=== PATIENT | female | born 1960 | race Caucasian/White ===

== ENCOUNTER → 2016-09-08 | Outpatient (CLI) | payer BC ==
--- NOTE | 2016-09-08 16:47 | US ---
EXAMINATION TYPE: US pelvis complete transvag DATE OF EXAM: 09/08/2016 4:01 PM COMPARISON: NONE CLINICAL HISTORY: 56-year-old female with Pelvic pain R10.9. Recurrent UTI, urinary frequency, partia l hysterectomy, pelvic pain TECHNIQUE: Transvaginal (TV) and Transabdominal (TA) . Endovaginal scanning was medically necessary to further evaluate the anatomy. FINDINGS: Uterus: Surgically absent. The vaginal cuff is thin at 8 mm. Right Ovary: unable to visualize Left Ovary: unable to visualize No evident adnexal abnormality or cul-de-sac free fluid. IMPRESSION: Status post hysterectomy. Neither ovary could be visualized. No pelvic free fluid seen.
== END | disposition home or self-care (01) ==
LOC: RADUSWWP 15:39
PROVIDERS: ATTEND Urology
DX: R10.2 Pelvic and perineal pain (principal); Z90.710 Acquired absence of both cervix and uterus
CPT/HCPCS: 76830; 76856

== ENCOUNTER → 2016-09-25 | Outpatient (CLI) | payer BC ==
--- NOTE | 2016-09-26 10:00 | XR ---
EXAMINATION TYPE: XR knee complete RT DATE OF EXAM: 09/25/2016 6:49 PM COMPARISON: NONE HISTORY: Pain TECHNIQUE: 3 view right knee FINDINGS: Minimal joint space narrowing is present. Some lateral femoral condylar spurring is present minimal medial femoral condylar spurring and medial tibial plateau spurring is present. Small joint effusion may be present. Posterior superior patellar spurring is present. No acute fractures are evident. IMPRESSION: 1. Mild degenerative changes knee joint space
== END | disposition home or self-care (01) ==
LOC: RADXRMAIN 18:25
PROVIDERS: ATTEND Family Medicine
DX: M17.11 Unilateral primary osteoarthritis, right knee (principal)

== ENCOUNTER → 2017-03-08 | Outpatient (CLI) | payer BC ==
--- NOTE | 2017-03-08 18:48 | MR ---
EXAMINATION TYPE: MR knee LT wo con DATE OF EXAM: 03/08/2017 5:34 PM COMPARISON: NONE HISTORY: Pain TECHNIQUE: Multiplanar, multisequence imaging of the left knee was performed. FINDINGS: MEDIAL MENISCUS: Negative and truncated posterior horn medial meniscus compatible with tear. Anterior horn is intact. LATERAL MENISCUS: Anterior and posterior horns are intact without tear. CRUCIATE LIGAMENTS: Moderate thinning of the ACL may reflect a chronic partial tear. The PCL is gross ly intact. COLLATERAL LIGAMENTS: The medial collateral ligament and lateral collateral ligament complex are intact and unremarkable. EXTENSOR MECHANISM: Visualized quadriceps and patellar tendons are intact. EFFUSION: No evidence for joint effusion. POPLITEAL CYST: No popliteal/hartley cyst. TRICOMPARTMENT SPACES: Moderate degenerative narrowing medial tibiofemoral joint space as well as pat ellofemoral joint space. CARTILAGE: Cystic changes patella with loss of cartilage compatible with the chondromalacia patella. Thinning of medial femoral condylar cartilage with underlying bone marrow edema and cystic subchondra l change. BONE MARROW SIGNAL: No focal abnormal marrow signal is appreciated: OTHER: No additional significant abnormality is appreciated. IMPRESSION: 1. Complex tear posterior horn medial meniscus. 2. Thinning ACL may reflect chronic partial tear. 3. Change of malacia patella is edema and subchondral changes of medial femoral condyle.
== END | disposition home or self-care (01) ==
LOC: RADMRIMAIN 16:45
PROVIDERS: ATTEND Orthopaedic Surgery
DX: S83.232A Complex tear of medial meniscus, current injury, left knee, initial encounter (principal)

== ENCOUNTER → 2017-04-10 | Outpatient (CLI) | payer BC ==
--- NOTE | 2017-04-11 11:07 | MM ---
Reason for exam: screening (asymptomatic). Last mammogram was performed 1 year and 3 months ago. History: Patient is postmenopausal. Benign stereotactic core biopsy of the right breast, April 25, 2004. Physical Findings: A clinical breast exam by your physician is recommended on an annual basis and results should be correlated with mammographic findings. MG Screening Mammo w CAD Bilateral CC and MLO view(s) were taken. Prior study comparison: January 21, 2016, bilateral MG screening mammo w CAD. May 08, 2014, bilateral MG screening mammo w CAD. The breast tissue is heterogeneously dense. This may lower the sensitivity of mammography. There is no discrete abnormality. No significant changes when compared with prior studies. ASSESSMENT: Negative, BI-RAD 1 RECOMMENDATION: Routine screening mammogram of both breasts in 1 year.
== END ==
LOC: RADMAMWWP 16:48
PROVIDERS: ATTEND Obstetrics & Gynecology
DX: Z12.31 Encounter for screening mammogram for malignant neoplasm of breast (principal)

== ENCOUNTER 2017-07-05 09:03 | Day surgery (SDC) | payer BC ==
[2017-07-02 10:39] VITALS: BMI 23.6
--- NOTE | 2017-07-04 14:06 | HP ---
HISTORY AND PHYSICAL DATE OF SERVICE: 07/05/2017 Shelly Flower is a 57-year-old patient seen with progressive left knee pain. After having treatment options discussed, she elected to proceed with left knee arthroscopy. Consent was obtained. PAST MEDICAL HISTORY: Hypothyroidism. PAST SURGICAL HISTORY: Left knee arthroscopy. DAILY MEDICATIONS: Synthroid. ALLERGIES: None reported. SOCIAL HISTORY: Patient denies current tobacco use. PHYSICAL EVALUATION: Left knee, range of motion -2/3 to 125 degrees. Mild intra-articular effusion. Tenderness medial joint line. Positive medial Dc's. Crepitus along the medial and patellofemoral compartments of the range of motion. Ligaments stable. Hip rotation without pain. Distal neurovascular exam intact. Radiographs of the left knee revealed moderate medial patellofemoral compartment osteoarthritis. Left knee MRI revealed medial meniscal tear and osteoarthritis. IMPRESSION: Internal derangement, left knee with medial meniscal tear. PLAN: Left knee arthroscopy with partial meniscectomy and debridement. MMODL / IJN: [id number] /
[~2017-07-05 09:03] MED LIST: DEXAMETHASONE SOD PHOSPHATE 10 MG/ML 1 ML VIAL IV ONE; HYDROmorphone 0.5 MG/0.5 ML SYRINGE IVP PRN; LACTATED RINGERS 1,000 ML IV SCH; MIDAZOLAM 2 MG/2 ML VIAL IV PRN; ceFAZolin 1,000 MG in DEXTROSE/WATER 1 50ML.BAG IVPB ONE
[2017-07-05] MEDS: ONDANSETRON 4 MG/2 ML VIAL IVP ONE ×2 (10:31→12:07)
[2017-07-05] MEDS ORDERED: PHENYLEPHRINE-0.9% NACL SYG 1 MG/10 ML SYRINGE ONE (11:04)
[2017-07-05] MEDS ORDERED: BUPIVACAINE (PF) 0.25% 30 ML VIAL INTRAARTIC ONE (11:04)
[2017-07-05] MEDS ORDERED: fentaNYL (PF) 50 MCG/ML 2 ML AMP ONE (11:04)
[2017-07-05] MEDS ORDERED: LIDOCAINE 1% INJ 10MG/ML (20 ML MDV) ONE (11:04)
[2017-07-05] MEDS ORDERED: PROPOFOL 10 MG/ML 20 ML VIAL IV ONE (11:04)
[2017-07-05 11:42] VITALS: TEMP 97.5
--- NOTE | 2017-07-05 11:52 | P.OP ---
Date of Procedure: 07/05/17 Preoperative Diagnosis: Internal derangement left knee Postoperative Diagnosis: 1. Tear medial and lateral meniscus left knee 2. Grade 2/3 chondromalacia medial femoral condyle left knee 3. Grade 4 chondromalacia patella left knee 4. Reactive synovitis medial and suprapatellar compartments left knee Procedure(s) Performed: 1. Arthroscopic partial medial and lateral meniscectomy left knee 2. Arthroscopic chondroplasty medial femoral condyle left knee 3. Arthroscopic chondroplasty patella left knee 4. Arthroscopic partial synovectomy medial and suprapatellar compartments left knee Anesthesia: RANDELLA, local Surgeon: Ari Walker Estimated Blood Loss (ml): 10 Pathology: none sent Condition: stable Disposition: PACU Indications for Procedure: 57-year-old patient seen with progressive left knee pain. After treatment options were discussed, she elected to proceed with arthroscopy. Operative Findings: See description of procedure Description of Procedure: Patient was taken to the operative suite. Patient underwent a general anesthetic by the department of anesthesia. Patient was given preoperative antibiotics. The left lower extremity was placed in a well-padded arthroscopic leg hill. The left leg was prepped and draped in the normal sterile orthopedic fashion. A lateral parapatellar and suprapatellar incision was made. Trochars were inserted. Arthroscopy was initiated. Suprapatellar pouch revealed diffuse thick reactive synovitis. The patellofemoral joint appeared to articulate congruently. There was grade 4 chondromalacia with exposed bone and peripheral osteochondral tears present. The scope was guided into the medial gutter. No loose bodies or plica were identified. The scope was then guided into the medial compartment. A medial parapatellar incision was made. Trocar inserted followed by probe. Was a radial tear involving the posterior horn medial meniscus with some maceration. There were grade 2-3 chondromalacia changes of the medial femoral condyle with some osteochondral tears present. There were grade 2-3 chondromalacia changes of the medial tibial plateau. There was reactive synovitis anteriorly. I performed a partial medial meniscectomy down to stable tissue. I performed a chondroplasty of the medial femoral condyle down to stable tissue and partial synovectomy. The residual meniscus was stable as was the residual osteochondral surface. Scope and probe were then guided into the intercondylar notch. Cruciates were identified , probed and found to be stable. The scope and probe were then guided into lateral compartment. There was a radial tear mid body lateral meniscus. Mild grade 1 chondromalacia changes of the lateral compartment with no osteochondral tears. No reactive synovitis or loose bodies. I performed a partial lateral meniscectomy down to stable tissue. The residual meniscus was stable. The scope was in guided back into the suprapatellar compartment. I introduced a motorized shaver into the suprapatellar compartment. I debrided some piecemeal fragments of meniscus I encountered. I performed a chondroplasty of the patella. I performed a partial synovectomy. The residual osteochondral surface was stable. I took one more look around the entire knee, no residual debris. Instruments were now removed from the joint. The joint was infiltrated with .25% Marcaine. Steri-Strips were applied to the portal sites. Sterile dressings were applied. The patient was placed into a SELINA hose. No tourniquet was utilized. The patient was awakened, transferred to a bed and taken to recovery stable satisfactory condition.
[2017-07-05 11:54] VITALS: RESP 16
[2017-07-05] MEDS ORDERED: KETOROLAC 30 MG/ML 1 ML VIAL IVP ONE (12:07)
[2017-07-05 12:46] VITALS: PULSE 62
[2017-07-05] MEDS ORDERED: HYDROcodone/APAP 7.5-325MG 1 EACH TAB PO ONE (12:53)
[2017-07-05 13:07] VITALS: BP 109/72
--- NOTE | 2017-07-05 13:12 | P.OP ---
Date of Procedure: 07/05/17 Preoperative Diagnosis: Internal derangement left knee Postoperative Diagnosis: 1. Tear medial and lateral meniscus left knee 2. Grade 4 chondromalacia medial femoral condyle left knee 3. Grade 3 chondromalacia patella left knee 4. Reactive synovitis medial and suprapatellar compartments left knee Procedure(s) Performed: 1. Arthroscopic partial medial and lateral meniscectomy left knee 2. Arthroscopic chondroplasty medial femoral condyle left knee 3. Arthroscopic chondroplasty patella left knee 4. Arthroscopic partial synovectomy medial and suprapatellar compartments left knee Anesthesia: RANDELLA, local Surgeon: Ari Walker Estimated Blood Loss (ml): 7 Pathology: none sent Condition: stable Disposition: PACU Indications for Procedure: 60-year-old patient seen with progressive left knee pain. After treatment options were discussed, he elected to proceed with arthroscopy. Operative Findings: See description of procedure Description of Procedure: Patient was taken to the operative suite. Patient underwent a general anesthetic by the department of anesthesia. Patient was given preoperative antibiotics. The left lower extremity was placed in a well-padded arthroscopic leg hill. The left leg was prepped and draped in the normal sterile orthopedic fashion. A lateral parapatellar and suprapatellar incision was made. Trochars were inserted. Arthroscopy was initiated. Suprapatellar pouch revealed diffuse thick reactive synovitis. The patellofemoral joint appeared to articulate congruently. There was grade 3 chondromalacia of the patella with osteochondral tears present. The scope was guided into the medial gutter. No loose bodies or plica were identified. The scope was then guided into the medial compartment. A medial parapatellar incision was made. Trocar inserted followed by probe. A complex tear posterior horn medial meniscus which did extend into the mid body. There were grade 4 chondromalacia changes of both the femoral condyle and tibial plateau. There were areas of exposed bone on both sides weightbearing surfaces. There was reactive synovitis anteriorly. I performed a partial medial meniscectomy down to stable tissue. I performed a chondroplasty of the medial femoral condyle down to stable tissue and partial synovectomy. The residual meniscus was stable as was the residual osteochondral surface of the medial femoral condyle. Scope and probe were then guided into the intercondylar notch. Cruciates were identified, probed and found to be stable. The scope and probe were then guided into lateral compartment. There was a radial tear mid body lateral meniscus. There were grade 1/2 chondromalacia changes lateral compartment. No osteochondral tears, no loose bodies or reactive synovitis. I performed a partial lateral meniscectomy down to stable tissue. The residual meniscus was stable. The scope was in guided back into the suprapatellar compartment. I introduced a motorized shaver into the suprapatellar compartment. I debrided some piecemeal fragments of meniscus I encountered. I performed a chondroplasty of the patella. I performed a partial synovectomy. Shaver was removed. Instruments were now removed from the joint. The joint was infiltrated with .25% Marcaine. Steri-Strips were applied to the portal sites. Sterile dressings were applied. The patient was placed into a SELINA hose. No tourniquet was utilized. The patient was awakened, transferred to a bed and taken to recovery stable satisfactory condition.
== END 2017-07-05 13:45 | disposition home or self-care (01) ==
LOC: OR 09:03
PROVIDERS: ATTEND Orthopaedic Surgery
DX: S83.242A Other tear of medial meniscus, current injury, left knee, initial encounter (principal); S83.282A Other tear of lateral meniscus, current injury, left knee, initial encounter; X58.XXXA Exposure to other specified factors, initial encounter; M22.42 Chondromalacia patellae, left knee; M65.862 Other synovitis and tenosynovitis, left lower leg; E03.9 Hypothyroidism, unspecified; Z79.899 Other long term (current) drug therapy
CPT/HCPCS: 29880; J1100; J2405; J2001; J3010; J1885; J0690; J2370; J2704; J1170

== ENCOUNTER → 2017-11-23 | Outpatient (CLI) | payer BC | END | disposition home or self-care (01) | LOC: LABWHC1 14:01 | PROVIDERS: ATTEND Physician Assistant Medical | DX: L30.9 Dermatitis, unspecified (principal) | CPT/HCPCS: 36415; 82955 ==

== ENCOUNTER 2018-01-30 09:58 | Day surgery (SDC) | payer BC ==
[2018-01-25 14:43] VITALS: BMI 24.7
[~2018-01-30 09:58] MED LIST changes: -DEXAMETHASONE SOD PHOSPHATE 10 MG/ML 1 ML VIAL IV ONE; -HYDROmorphone 0.5 MG/0.5 ML SYRINGE IVP PRN; -MIDAZOLAM 2 MG/2 ML VIAL IV PRN; -ceFAZolin 1,000 MG in DEXTROSE/WATER 1 50ML.BAG IVPB ONE
[2018-01-30 11:02] VITALS: RESP 16; TEMP 98.3
[2018-01-30] MEDS ORDERED: LIDOCAINE 1% 20 ML VIAL (10MG/ML) FOR IV START INTRADERMA ONE (11:04)
[2018-01-30] MEDS ORDERED: PROPOFOL 10 MG/ML 20 ML VIAL IV ONE (11:40)
--- NOTE | 2018-01-30 11:53 | P.PCN ---
Date of Procedure: 01/30/18 Procedure(s) Performed: BRIEF HISTORY: Patient is a 57-year-old pleasant female, scheduled for an elective colonoscopy as a part of screening for colorectal neoplasia. PROCEDURE PERFORMED: Colonoscopy. PREOPERATIVE DIAGNOSIS: Screening for colon cancer. IV sedation per Anesthesia. PROCEDURE: After informed consent was obtained, the patient, was brought into the endoscopy unit. IV sedation was administered by Anesthesia under continuous monitoring. Digital rectal examination was normal. Initially the Olympus CF- 160 flexible video colonoscope was then inserted in the rectum, gradually advanced into the cecum without any difficulty. Careful examination was performed as the scope was gradually being withdrawn. Ileocecal valve and the appendiceal orifice were visualized and appeared normal. Prep was excellent. Mucosa of the cecum, ascending colon, transverse colon, descending colon, sigmoid colon, and rectum appeared normal. Scattered left sided diverticulosis seen. Retroflexion was performed in the rectum and no lesions were seen. The patient tolerated the procedure well. IMPRESSION: Normal-appearing colon from rectum to cecum with no evidence of colorectal neoplasia. Scattered left-sided diverticulosis. RECOMMENDATIONS: Findings of this examination were discussed with the patient as well as her family. She was advised to have a repeat screening colonoscopy in 10 years.
[2018-01-30 12:33] VITALS: BP 147/80; PULSE 66
== END 2018-01-30 12:58 | disposition home or self-care (01) ==
LOC: ORWHC2ENDO 09:58
PROVIDERS: ATTEND Internal Medicine Gastroenterology
DX: Z12.11 Encounter for screening for malignant neoplasm of colon (principal); K57.30 Diverticulosis of large intestine without perforation or abscess without bleeding; E78.5 Hyperlipidemia, unspecified; E07.9 Disorder of thyroid, unspecified; K21.9 Gastro-esophageal reflux disease without esophagitis; Z79.890 Hormone replacement therapy; Z79.899 Other long term (current) drug therapy
CPT/HCPCS: J2704; G0121; 45378

== ENCOUNTER → 2018-07-03 | Outpatient (CLI) | payer BC ==
--- NOTE | 2018-07-04 12:56 | MM ---
Reason for exam: screening (asymptomatic). Last mammogram was performed 1 year and 3 months ago. History: Patient is postmenopausal. Benign stereotactic core biopsy of the right breast, April 25, 2004. Physical Findings: A clinical breast exam by your physician is recommended on an annual basis and results should be correlated with mammographic findings. MG Screening Mammo w CAD Bilateral CC and MLO view(s) were taken. Prior study comparison: April 10, 2017, bilateral MG screening mammo w CAD. January 21, 2016, bilateral MG screening mammo w CAD. The breast tissue is heterogeneously dense. This may lower the sensitivity of mammography. There is no discrete abnormality. No significant changes when compared with prior studies. ASSESSMENT: Negative, BI-RAD 1 RECOMMENDATION: Routine screening mammogram of both breasts in 1 year.
== END | disposition home or self-care (01) ==
LOC: RADMAMWWP 13:08
PROVIDERS: ATTEND Obstetrics & Gynecology
DX: Z12.31 Encounter for screening mammogram for malignant neoplasm of breast (principal)
CPT/HCPCS: 77067

== ENCOUNTER → 2019-12-29 | Outpatient (CLI) | payer MEDICARE ==
--- NOTE | 2020-01-01 10:34 | MM ---
Reason for exam: screening (asymptomatic). Last mammogram was performed 1 year and 6 months ago. History: Patient is postmenopausal. Benign stereotactic core biopsy of the right breast, April 25, 2004. Physical Findings: A clinical breast exam by your physician is recommended on an annual basis and results should be correlated with mammographic findings. MG Screening Mammo w CAD Bilateral CC and MLO view(s) were taken. Prior study comparison: July 03, 2018, bilateral MG screening mammo w CAD. April 10, 2017, bilateral MG screening mammo w CAD. The breast tissue is heterogeneously dense. This may lower the sensitivity of mammography. Previous mammotome biopsy in the right breast. No significant changes when compared with prior studies. ASSESSMENT: Benign, BI-RAD 2 RECOMMENDATION: Routine screening mammogram of both breasts in 1 year.
== END | disposition home or self-care (01) ==
LOC: RADMAMWWP 13:13
PROVIDERS: ATTEND Family Medicine
DX: Z12.31 Encounter for screening mammogram for malignant neoplasm of breast (principal)
CPT/HCPCS: 77067

== ENCOUNTER → 2020-03-17 | Outpatient (CLI) | payer MEDICARE ==
--- NOTE | 2020-03-17 15:26 | BD ---
EXAMINATION TYPE: Axial Bone Density DATE OF EXAM: 03/17/2020 COMPARISON: NONE CLINICAL HISTORY: Height: 63.5 Weight: 145.2 FRAX RISK QUESTIONS: Alcohol (3 or more units per day): no Family History (Parent hip fracture): no Glucocorticoids (More than 3mos): no (Ex: prednisone, prednisolone, methylprednisolone, dexamethasone, and hydrocortisone). History of Fracture in Adulthood: yes Secondary Osteoporosis: 1. Type 1 Diabetes: no 2. Hyperthyroidism: no 3. Menopause before 45: no 4. Malnutrition: no 5. Chronic liver disease: no Rheumatoid Arthritis: no Current Tobacco Use: no RISK FACTORS HISTORY OF: Family History of Osteoporosis: no Active: yes Diet low in dairy products/other sources of calcium: yes Postmenopausal woman: age 47 Lost more than 2 inches in height since high school: no MEDICATIONS: omeprazole Thyroid Medications: synthroid How Lon years Additional History: EXAM MEASUREMENTS: Bone mineral densitometry was performed using the Check System. Bone mineral density as measured about the Lumbar spine is: ----- L1-L4(G/cm2): 0.798 T Score Values are as follows: ----- L2: -3.8 ----- L3: -2.9 ----- L4: -2.5 ----- L1-L4: -3.2 Bone mineral density : baseline Bone mineral density about the R hip (g/cm2): 0.645 Bone mineral density about the L hip (g/cm2): 0.516 T Score values are as follows: -----R Neck: -2.0 -----L Neck: -3.0 -----R Total: -1.2 -----L Total: -2.3 Bone mineral density : baseline IMPRESSION: Osteoporosis lumbar spine. Osteopenia bilateral femora. NOTE: T-SCORE=SD OF THE YOUNG ADULT MEAN.
== END | disposition home or self-care (01) ==
LOC: RADBDWWP 14:51
PROVIDERS: ATTEND Family Medicine
DX: M85.89 Other specified disorders of bone density and structure, multiple sites (principal)
CPT/HCPCS: 77080

== ENCOUNTER → 2020-12-31 | Outpatient (CLI) | payer MEDICARE ==
--- NOTE | 2021-01-03 11:14 | MM ---
Reason for exam: screening (asymptomatic). Last mammogram was performed 1 year ago. History: Patient is postmenopausal. Benign stereotactic core biopsy of the right breast, April 25, 2004. Took hormonal contraceptives for 2 years. Physical Findings: A clinical breast exam by your physician is recommended on an annual basis and results should be correlated with mammographic findings. MG 3D Screening Mammo W/Cad Bilateral CC and MLO view(s) were taken. Prior study comparison: December 29, 2019, bilateral MG screening mammo w CAD. July 03, 2018, bilateral MG screening mammo w CAD. There are scattered fibroglandular densities. Right biopsy clip. ASSESSMENT: Benign, BI-RAD 2 RECOMMENDATION: Routine screening mammogram of both breasts in 1 year.
== END | disposition home or self-care (01) ==
LOC: RADMAMWWP 11:15
PROVIDERS: ATTEND Obstetrics & Gynecology
DX: Z12.31 Encounter for screening mammogram for malignant neoplasm of breast (principal)
CPT/HCPCS: 77063; 77067

== ENCOUNTER → 2021-03-15 | Outpatient (CLI) | payer MEDICARE ==
--- NOTE | 2021-03-15 17:57 | MR ---
EXAMINATION TYPE: MR knee LT wo con DATE OF EXAM: 03/15/2021 COMPARISON: Prior left knee MRI 03/08/2017 HISTORY: Left knee pain TECHNIQUE: Multiplanar, multisequence imaging of the left knee is performed without IV contrast. FINDINGS: MEDIAL MENISCUS: Posterior horn the medial meniscus again shows the complex tear change, is markedly attenuated, the anchor root is not seen definitively and is likely torn. LATERAL MENISCUS: Anterior and posterior horns are intact without tear. CRUCIATE LIGAMENTS: Similar in appearance, anterior cruciate ligament somewhat attenuated, there may be chronic partial tear COLLATERAL LIGAMENTS: There is some motion, popliteus tendon not well seen in its entirety but though t likely to be intact as are the remainder of the collateral ligament EXTENSOR MECHANISM: Visualized quadriceps and patellar tendons are intact. EFFUSION: Minimal joint effusion POPLITEAL CYST: No popliteal/hartley cyst. TRICOMPARTMENT SPACES: Joint space loss present at the patellofemoral joint and medial compartment gr eater than lateral compartment CARTILAGE: There is grade IV chondromalacia posterior patella as on prior, grade IV chondromalacia me dial compartment BONE MARROW SIGNAL: Reactive marrow signal change present within the proximal tibia has progressed in the interval medially extending to the tibial spines. There is distortion medial femoral condyle whi ch has progressed, there is bone loss, cortical regularity with remodeling there is increased compare d to prior exam, subchondral marrow signal change in the medial femoral condyle is again seen. Subcho ndral edema changes also present in the posterior patella, linear low signal is present along the met aphysis of the proximal tibia medially consistent with nondisplaced fracture. OTHER: Subcutaneous fat shows edema change. Some varicosities are also present within the subcutaneo us fat. There is edema signal in the musculature posterior to the proximal tibia. IMPRESSION: There has been progression of patient's underlying osteoarthritis as described. There may be an insuf ficiency fracture along the proximal tibia.
== END | disposition home or self-care (01) ==
LOC: RADMRIMAIN 11:31
PROVIDERS: ATTEND Orthopaedic Surgery
DX: M25.562 Pain in left knee (principal)

== ENCOUNTER → 2021-03-22 | Outpatient (CLI) | payer MEDICARE ==
[2021-03-22 14:05] LABS: Basophils % (A) 1 %; Eosinophils # (A) 0.2 k/uL (0-0.7); Eosinophils % (A) 3 %; HCT 39.6 % (34.0-46.0); HGB 13.5 gm/dL (11.4-16.0); Lymphocytes # (A) 2.2 k/uL (1.0-4.8); Lymphocytes % (A) 36 %; MCH 30.4 pg (25.0-35.0); MCHC 34.2 g/dL (31.0-37.0); MCV 88.9 fL (80.0-100.0); Monocytes # (A) 0.3 k/uL (0-1.0); Monocytes % (A) 6 %; Neutrophils # (A) 3.2 k/uL (1.3-7.7); Neutrophils % (A) 52 %; Platelet Count 207 k/uL (150-450); RBC 4.46 m/uL (3.80-5.40); WBC 6.1 k/uL (3.8-10.6)
== END | disposition home or self-care (01) ==
LOC: LABPAT 11:20
PROVIDERS: ATTEND Orthopaedic Surgery
DX: Z01.812 Encounter for preprocedural laboratory examination (principal); Z01.810 Encounter for preprocedural cardiovascular examination; M23.92 Unspecified internal derangement of left knee
CPT/HCPCS: 36415; 80051; 85025; 93005

== ENCOUNTER 2021-03-31 10:37 | Day surgery (SDC) | payer MEDICARE ==
[2021-03-28 15:58] VITALS: BMI 26.1
--- NOTE | 2021-03-30 19:35 | HP ---
HISTORY AND PHYSICAL Surgery 03/31/2021. HISTORY OF PRESENT ILLNESS: Shelly Flower is a 60-year-old patient seen with progressive left knee pain. We discussed options for treatment. She elected to proceed with left knee arthroscopy. Consent was obtained. PAST MEDICAL HISTORY: Hypothyroidism, hyperlipidemia. PAST SURGICAL HISTORY: Knee arthroscopy. DAILY MEDICATIONS: Synthroid, atorvastatin, alprazolam. ALLERGIES: None. SOCIAL HISTORY: She denies tobacco use. PHYSICAL EVALUATION OF THE LEFT KNEE: Range of motion is -12/13 to 90. Tenderness medial joint line. Positive medial Dc's. Ligaments stable. Hip rotation without pain. Distal neurovascular exam intact. RADIOGRAPHS: Left knee radiographs revealed osteoarthritic changes. MRI left knee revealed medial meniscal tear. IMPRESSION: 1. Internal derangement of left knee with medial meniscal tear. 2. Left knee osteoarthritis. 3. Hypothyroidism. 4. Hyperlipidemia. PLAN: Left knee arthroscopy with partial meniscectomy and debridement. Surgery 03/31/2021. MMODL / IJN: [id number] /
[~2021-03-31 10:37] MED LIST changes: +DEXAMETHASONE SOD PHOSPHATE 4 MG/ML 1 ML VIAL IV ONE; +ONDANSETRON 4 MG/2 ML VIAL IVP ONE
[2021-03-31 12:57] VITALS: TEMP 98.2
[2021-03-31] MEDS: ONDANSETRON 4 MG/2 ML VIAL IVP ONE ×2 (13:10→15:25)
[2021-03-31] MEDS ORDERED: DEXAMETHASONE SOD PHOSPHATE 4 MG/ML 1 ML VIAL IVP ONE (13:11)
[2021-03-31] MEDS ORDERED: MIDAZOLAM 2 MG/2 ML VIAL ONE (14:08)
[2021-03-31] MEDS ORDERED: KETOROLAC 15 MG/ML 1 ML VIAL ONE (14:08)
[2021-03-31] MEDS ORDERED: LIDOCAINE 1% INJ 10MG/ML (20 ML MDV) ONE (14:08)
[2021-03-31] MEDS ORDERED: PROPOFOL 10 MG/ML 20 ML VIAL IV ONE (14:08)
[2021-03-31] MEDS ORDERED: fentaNYL (PF) 50 MCG/ML 2 ML AMP ONE (14:08)
[2021-03-31] MEDS ORDERED: BUPIVACAINE (PF) 0.25% 30 ML VIAL INTRAARTIC ONE (14:25)
--- NOTE | 2021-03-31 14:51 | P.OP ---
Date of Procedure: 03/31/21 Preoperative Diagnosis: Internal derangement left knee Postoperative Diagnosis: 1. Tear medial meniscus left knee 2. Grade 3/4 chondromalacia medial femoral condyle left knee 3. Reactive synovitis medial, lateral and suprapatellar compartments left knee Procedure(s) Performed: 1. Arthroscopic partial medial meniscectomy left knee 2. Arthroscopic chondroplasty medial femoral condyle left knee 3. Arthroscopic microfracture medial femoral condyle left knee 4. Arthroscopic partial synovectomy medial, lateral and suprapatellar compartments left knee Anesthesia: RANDELLA, local Surgeon: Ari Walker Estimated Blood Loss (ml): 8 Pathology: none sent Condition: stable Disposition: PACU Indications for Procedure: 60-year-old patient seen with progressive left knee. After treatment options were discussed, she elected to proceed with arthroscopy. Operative Findings: See description of procedure Description of Procedure: Patient was taken to the operative suite. Patient underwent a general anesthetic by the department of anesthesia. Patient was given preoperative antibiotics. The left lower extremity was placed in a well-padded arthroscopic leg hill. The left leg was prepped and draped in the normal sterile orthopedic fashion. A lateral parapatellar and suprapatellar incision was made. Trochars were inserted. Arthroscopy was initiated. Suprapatellar pouch revealed diffuse thick reactive synovitis. The patellofemoral joint appeared to articulate congruently. There was grade 1/2 chondromalacia with no osteochondral tears present. The scope was guided into the medial gutter. No loose bodies or plica were identified. The scope was then guided into the medial compartment. A medial parapatellar incision was made. Trocar inserted followed by probe. There was a radial tear posterior horn medial meniscus. There were grade 3/4 chondromalacia changes of the medial femoral condyle with a large osteochondral flap tear present. There was thick reactive synovitis anteriorly. I performed a partial medial meniscectomy getting down to stable meniscal tissue. I performed a chondroplasty of the medial femoral condyle getting down to stable osteochondral tissue. I performed a partial synovectomy decompressing the reactive synovitis. The residual meniscus was stable. There was good decompression of synovitis. There was a small area of exposed bone along the medial femoral condyle. I performed a microfracture to that area penetrating the bone with resultant bleeding at the microfracture site. The residual osteochondral surface was stable. Scope and probe were then guided into the intercondylar notch. Cruciates were identified, probed and found to be stable. The scope and probe were then guided into lateral compartment. Lateral meniscus was found to be stable. There was grade 1 chondral malacia changes of the tibial plateau. There was some thick reactive synovitis anteriorly. I introduced a motorized shaver and performed a partial synovectomy. Shaver was removed. There was good decompression of the synovitis. The scope was in guided back into the suprapatellar compartment. I introduced a motorized shaver into the suprapatellar compartment. I debrided some piecemeal fragments of meniscus I encountered. I performed a partial synovectomy. Shaver was removed. There was good decompression of the synovitis. I took one more look on the entire knee, no residual debris. Instruments were now removed from the joint. The joint was infiltrated with .25% Marcaine. Steri-Strips were applied to the portal sites. Sterile dressings were applied. The patient was placed into a SELINA hose. No tourniquet was utilized. The patient was awakened, transferred to a bed and taken to recovery stable satisfactory condition.
[2021-03-31] MEDS: HYDROmorphone 0.5 MG/0.5 ML SYRINGE IVP PRN ×3 (14:54→15:25)
[2021-03-31] MEDS ORDERED: ONDANSETRON 4 MG/2 ML VIAL ONE (15:21)
[2021-03-31] MEDS ORDERED: LACTATED RINGERS 1,000 ML IV ONE (15:26)
[2021-03-31 15:45] VITALS: RESP 20
[2021-03-31 16:13] VITALS: BP 134/73; PULSE 64
== END 2021-03-31 16:32 | disposition home or self-care (01) ==
LOC: OR 10:37
PROVIDERS: ATTEND Orthopaedic Surgery
DX: M23.304 Other meniscus derangements, unspecified medial meniscus, left knee (principal); M65.9 Synovitis and tenosynovitis, unspecified; E03.9 Hypothyroidism, unspecified; E78.5 Hyperlipidemia, unspecified; Z79.899 Other long term (current) drug therapy; M17.12 Unilateral primary osteoarthritis, left knee; K21.9 Gastro-esophageal reflux disease without esophagitis; E07.9 Disorder of thyroid, unspecified
CPT/HCPCS: 29881; 29879; 29876; J2250; J1100; J2405; J0690; J2001; J3010; J1885; J2704; J1170

== ENCOUNTER → 2021-06-06 | Outpatient (CLI) | payer MEDICARE ==
--- NOTE | 2021-06-06 12:39 | US ---
EXAMINATION TYPE: US abdomen complete DATE OF EXAM: 06/06/2021 COMPARISON: NONE CLINICAL HISTORY: 60-year-old female [id number] sided abdomen pain. Right side pain TECHNIQUE: Multiple sonographic images of the abdomen are obtained. FINDINGS: EXAM MEASUREMENTS: Liver Length: 14.7 cm Gallbladder Wall: 0.2 cm CBD: 0.4 cm Spleen: 10.6 cm Right Kidney: 9.4 x 4.2 x 4.8 cm Left Kidney: 10.0 x 4.3 x 4.9 cm Pancreas: Suboptimal visualization of the pancreatic tail due to shadowing from bowel gas. Liver: wnl Gallbladder: wnl Evidence for sonographic 's sign: neg CBD: wnl Spleen: wnl Right Kidney: Mild right-sided pelvocaliectasis. Left KidneyMedial anechoic lesion at hilum seen = 2.0 x 1.1 cm cm suggests extra renal pelvis. Upper IVCwnlwnl Abd AortaNo AAA visualizedze IMPRESSIO 1. Mild right-sided pelvicaliectasis may be transient. Correlate with urinalysis and for any potentia l right-sided renal colic. Short interval follow-up ultrasound if no clinical suspicion of early hydr onephrosis. 2. Otherwise, no specific abnormality seen.
== END | disposition home or self-care (01) ==
LOC: RADUSWWP 08:04
PROVIDERS: ATTEND Family Medicine
DX: R10.811 Right upper quadrant abdominal tenderness (principal)
CPT/HCPCS: 76700

== ENCOUNTER → 2021-10-27 | Outpatient (CLI) | payer MEDICARE ==
--- NOTE | 2021-10-28 15:55 | MR ---
EXAMINATION TYPE: MR knee RT wo con DATE OF EXAM: 10/27/2021 COMPARISON: 10/18/2021 HISTORY: 61-year-old female Right inner knee pain, painful kneecap, and swelling. History of surgery. TECHNIQUE: Multiplanar, multisequence imaging of the right knee is performed without IV contrast. FINDINGS: There is a partial thickness tear of the ACL with associated ligamentous ganglion cyst measuring 2.1 x 0.6 cm along the fibers of the ligament. PCL is intact. MCL and LCL complex is intact. Mild diffuse thinning of weightbearing articular cartilage in the medial compartment. There is a post erior root tear of the medial meniscus. Some reactive marrow signal change along the periphery of the medial compartment with marginal spurring. Lateral meniscus is intact. Overall lateral compartment articular cartilage volume is maintained. There is moderate to severe cartilage loss along the medial and lateral patellar facets with scattere d areas of degenerative subchondral signal change. Mild diffuse thinning of trochlear articular carti jorje. Extensor mechanism is intact. Some intermediate signal at the quadriceps insertion compatible with te ndinosis. There is a small knee joint effusion. Trace leaking Soto's cyst. Normal popliteal artery anatomy. Generalized muscle atrophy. No suspicious bone marrow replacement. S uspect prior arthroscopy portal along the infrapatellar region. IMPRESSION: 1. Chronic partial thickness tear of the ACL with associated ligamentous ganglion cyst measuring 2.1 x 0.6 cm. 2. Posterior root tear of the medial meniscus. Scattered mild degenerative changes throughout the med ial compartment articular cartilage. 3. Moderate overall patellofemoral compartmental osteoarthrosis with areas of moderate to severe cart ilage loss throughout the patellar facets. 4. Trace leaking Soto's cyst. Small knee joint effusion.
== END | disposition home or self-care (01) ==
LOC: RADMRIMAIN 11:06
PROVIDERS: ATTEND Orthopaedic Surgery
DX: S83.511A Sprain of anterior cruciate ligament of right knee, initial encounter (principal); S83.241A Other tear of medial meniscus, current injury, right knee, initial encounter; M71.21 Synovial cyst of popliteal space [Baker], right knee; X58.XXXA Exposure to other specified factors, initial encounter

== ENCOUNTER → 2021-11-08 | Outpatient (CLI) | payer MEDICARE ==
--- NOTE | 2021-11-08 13:10 | XR ---
EXAMINATION TYPE: XR chest 2V DATE OF EXAM: 11/08/2021 COMPARISON: NONE HISTORY: Persistent cough since bronchitis 6 months ago. TECHNIQUE: Frontal and lateral views of the chest are obtained. FINDINGS: There is mild chronic change without suspicious focal air space opacity, pleural effusion, or pneumothorax seen. The cardiac silhouette size is within normal limits. The osseous structures are demineralized. IMPRESSION: No acute pulmonary process.
== END | disposition home or self-care (01) ==
LOC: RADXRMAIN 12:52
PROVIDERS: ATTEND Family Medicine
DX: R05.9 Cough, unspecified (principal)
CPT/HCPCS: 71046

== ENCOUNTER → 2021-11-29 | Outpatient (CLI) | payer MEDICARE ==
[2021-11-29 18:36] LABS: Anion Gap 10.3 mmol/L (10.00-18.00); Carbon Dioxide 27.6 mmol/L (20.0-27.5); Potassium 4.8 mmol/L (3.5-5.5)
[2021-11-29 18:46] LABS: HCT 39.6 % (37.2-46.3); HGB 12.8 g/dL (12.0-15.0); MCH 29.6 pg (27.0-32.0); MCHC 32.3 g/dL (32.0-37.0); MCV 91.5 fL (80.0-97.0); Mean Platelet Volume 9.7 fL (9.5-12.2); NRBC Per 100 WBC 0 /100 WBCS (0.0-0.0); Platelet Count 222 X 10*3/uL (140-440); RBC 4.33 X 10*6/uL (4.10-5.20); RDW 12.7 % (11.5-14.5); WBC 4.91 X 10*3/uL (4.50-10.00)
== END | disposition home or self-care (01) ==
LOC: LABPAT 11:10
PROVIDERS: ATTEND Orthopaedic Surgery
DX: Z01.812 Encounter for preprocedural laboratory examination (principal); M23.91 Unspecified internal derangement of right knee
CPT/HCPCS: 80051; 85027

== ENCOUNTER 2021-12-15 11:09 | Day surgery (SDC) | payer MEDICARE ==
[2021-12-13 16:02] VITALS: BMI 24.9
--- NOTE | 2021-12-14 14:35 | HP ---
HISTORY AND PHYSICAL REASON FOR ADMISSION: Surgery scheduled for 12/15/2021 Shelly Flower is a 61-year-old patient seen with progressive right knee pain. We discussed options for treatment. She elected to proceed with right knee arthroscopy. Consent is obtained. PAST MEDICAL HISTORY: Hypothyroidism, hyperlipidemia, anxiety. PAST SURGICAL HISTORY: Left knee arthroscopy. MEDICATIONS: Synthroid, atorvastatin and Alprazolam. PRESENT ALLERGIES: None. SOCIAL HISTORY: She denies tobacco use. PHYSICAL EVALUATION OF THE RIGHT KNEE: Range of motion is -2/3-120. Mild effusion. Tenderness medial joint line. Positive medial Dc's. Mild effusion. Ligaments stable. Hip rotation without pain. Distal neurovascular exam intact right. RADIOGRAPHS: Right knee radiographs revealed moderate osteoarthritis. MRI right knee revealed meniscal tear. IMPRESSION: 1. Internal range, right knee with medial meniscal tear. 2. Hyperlipidemia. PLAN: Right knee arthroscopy with partial medial meniscectomy and debridement. Surgery 12/15/2021. MMODL / IJN: [id number] /
[~2021-12-15 11:09] MED LIST changes: +HYDROmorphone 0.5 MG/0.5 ML SYRINGE IVP PRN
[2021-12-15] MEDS ORDERED: MIDAZOLAM 2 MG/2 ML VIAL IVP ONE (12:52)
[2021-12-15] MEDS ORDERED: BUPIVACAINE (PF) 0.25% 30 ML VIAL SQ ONE ×2 (12:53→13:24)
[2021-12-15] MEDS ORDERED: fentaNYL (PF) 50 MCG/ML 2 ML AMP ONE (12:59)
[2021-12-15] MEDS ORDERED: SUCCINYLCHOLINE CHLORIDE 100 MG/5 ML SYR IV ONE (12:59)
[2021-12-15] MEDS ORDERED: LIDOCAINE 2% INJ 20 MG/ML (2 ML VIAL) ONE (12:59)
[2021-12-15] MEDS ORDERED: PROPOFOL 10 MG/ML 20 ML VIAL IV ONE (12:59)
--- NOTE | 2021-12-15 13:40 | P.OP ---
Date of Procedure: 12/15/21 Preoperative Diagnosis: Internal derangement right knee Postoperative Diagnosis: 1. Tear medial meniscus right knee 2. Grade 2/3 chondromalacia medial femoral condyle right knee 3. Reactive synovitis medial, lateral and suprapatellar compartments right knee Procedure(s) Performed: 1. Arthroscopic partial medial meniscectomy right knee 2. Arthroscopic chondroplasty medial femoral condyle right knee 3. Arthroscopic partial synovectomy medial, lateral and suprapatellar compartments right knee Anesthesia: RANDELLA, local Surgeon: Ari Walker Estimated Blood Loss (ml): 7 Pathology: none sent Condition: stable Disposition: PACU Indications for Procedure: 61-year-old patient seen with progressive right knee pain. After having treatment options discussed, she elected to proceed with arthroscopy. Operative Findings: see description of procedure Description of Procedure: Patient was taken to the operative suite. Patient underwent a general anesthetic by the department of anesthesia. Patient was given preoperative antibiotics. The right lower extremity was placed in a well-padded arthroscopic leg hill. The right leg was prepped and draped in the normal sterile orthopedic fashion. A lateral parapatellar and suprapatellar incision was made. Trochars were inserted. Arthroscopy was initiated. Suprapatellar pouch revealed diffuse thick reactive synovitis. The patellofemoral joint appeared to articulate congruently. There was grade 1 chondromalacia of the patellofemoral joint with no tears present. The scope was guided into the medial gutter. No loose bodies or plica were identified. The scope was then guided into the medial compartment. A medial parapatellar incision was made. Trocar inserted followed by probe. There was a tear involving the posterior horn medial meniscus in the area of the root. There were grade 2/3 chondromalacia changes of the medial femoral condyle with some osteochondral tears present. There was some thick reactive synovitis anteriorly. I performed a partial medial meniscectomy getting down to stable meniscal tissue. I performed a chondroplasty of the medial femoral condyle getting down to stable osteochondral tissue. I performed a partial synovectomy decompressing the reactive synovitis anteriorly. The residual meniscus was stable. The residual osteochondral surface was stable. There was good decompression of the synovitis. Scope and probe were then guided into the intercondylar notch. Cruciates were identified, probed and found to be stable. The scope and probe were then guided into lateral compartment. Lateral meniscus was probed and was found to be stable. There was no significant chondromalacia present. There was some thick reactive synovitis anteriorly. I introduced a motorized shaver and I performed a partial synovectomy. Shaver was now removed. There was good decompression of the synovitis. The scope was in guided back into the suprapatellar compartment. I introduced a motorized shaver into the super patellar compartment. I debrided some piecemeal fragments of meniscus that I encountered. I performed a partial synovectomy. The shaver was now removed. There was good decompression of the synovitis. I now took one more look around the entire knee, no residual debris. Instruments were now removed from the joint. The joint was infiltrated with .25% Marcaine. Steri-Strips were applied to the portal sites. Sterile dressings were applied. The patient was placed into a SELINA hose. No tourniquet was utilized. The patient was awakened, transferred to a bed and taken to recovery stable satisfactory condition.
[2021-12-15 13:50] VITALS: TEMP 96.8
[2021-12-15] MEDS ORDERED: LACTATED RINGERS 1,000 ML IV ONE (14:16)
[2021-12-15] MEDS ORDERED: HYDROcodone/APAP 5-325MG 1 EACH TAB ONE (14:28)
[2021-12-15 14:39] VITALS: RESP 16
[2021-12-15 15:27] VITALS: BP 138/74; PULSE 52
== END 2021-12-15 15:30 | disposition home or self-care (01) ==
LOC: OR 11:09
PROVIDERS: ATTEND Orthopaedic Surgery
DX: M23.91 Unspecified internal derangement of right knee (principal); M23.203 Derangement of unspecified medial meniscus due to old tear or injury, right knee; M94.261 Chondromalacia, right knee; M17.11 Unilateral primary osteoarthritis, right knee; M65.861 Other synovitis and tenosynovitis, right lower leg; K21.9 Gastro-esophageal reflux disease without esophagitis; E03.9 Hypothyroidism, unspecified; E78.5 Hyperlipidemia, unspecified; F41.9 Anxiety disorder, unspecified; Z98.890 Other specified postprocedural states; Z97.2 Presence of dental prosthetic device (complete) (partial); Z79.890 Hormone replacement therapy; Z79.899 Other long term (current) drug therapy
CPT/HCPCS: 29881; J2250; J1100; J0690; J3010; J0330; J2704; J2001

== ENCOUNTER → 2022-02-07 | Outpatient (CLI) | payer MEDICARE ==
--- NOTE | 2022-02-08 18:06 | MM ---
Reason for Exam: Screening (asymptomatic). Last mammogram was performed 1 year(s) and 1 month(s) ago. Patient History: Menarche at age 12. First Full-Term at age 29. Late child-bearing (after 29). Hysterectomy at age 47. Postmenopausal. Patient used Hormonal Contraceptives for 2 years. 04/25/2004, Benign Stereotactic Core Biopsy on the right side. Risk Values: Teresa 5 year model risk: 2.5%. NCI Lifetime model risk: 11.0%. Prior Study Comparison: 07/03/2018 Bilateral Screening Mammogram, [facility]. 12/29/2019 Bilateral Screening Mammogram, [facility]. 12/31/2020 Bilateral Screening Mammogram, [facility]. Tissue Density: The breast tissue is heterogeneously dense. This may lower the sensitivity of mammography. Findings: Analyzed By CAD. There is no suspicious group of microcalcifications or new suspicious mass in either breast. Biopsy clip demonstrated in the right breast. No significant change from prior examinations. Overall Assessment: Benign, BI-RAD 2 Management: Screening Mammogram of both breasts in 1 year. A clinical breast exam by your physician is recommended on an annual basis and results should be correlated with mammographic findings. Electronically signed and approved by: Zachery Patel D.O.
== END | disposition home or self-care (01) ==
LOC: RADMAMWWP 14:58
PROVIDERS: ATTEND Obstetrics & Gynecology
DX: Z12.31 Encounter for screening mammogram for malignant neoplasm of breast (principal)
CPT/HCPCS: 77063; 77067

== ENCOUNTER → 2022-04-06 | Outpatient (CLI) | payer MEDICARE ==
--- NOTE | 2022-04-06 19:18 | MR ---
EXAMINATION TYPE: MR knee LT wo con DATE OF EXAM: 04/06/2022 COMPARISON: 03/15/2021 and radiograph 03/21/2022 HISTORY: 61-year-old female Left knee pain, history of surgery TECHNIQUE: Multiplanar, multisequence imaging of the left knee is performed without IV contrast. FINDINGS: The ACL, PCL, MCL, and LCL complex appear intact. Medial meniscus is diffusely degenerated and torn. A large posterior root tear is redemonstrated. The body is severely diminutive. Moderate to severe irregular cartilage loss throughout the medial compartment. A large osteochondral defect along the mid weightbearing aspect of the medial femoral condyle measures 7 mm wide by 1.1 cm AP. Associated cystic change and reactive marrow edema remains here. Overall defect has enlarged in t he interval. Lateral meniscus appears intact. There is degenerative spurring and mild diffuse thinning of articula r cartilage. Redemonstrated severe loss of articular cartilage and joint space with bone on bone abutment along th e lateral facets of the patellofemoral compartment. Reactive subchondral cystic change. Moderate irre gular cartilage loss along the medial facets. Some increased signal at the quadriceps insertion and is slightly increased suggesting tendinosis. Ex tensor mechanism is otherwise intact. Increased signal within the suprapatellar fat pad and also along the inferior and lateral aspect of t he patella may reflect fat pad impingement syndrome. Physiologic joint fluid. No sizable Soto's cyst. Mild to moderate generalized muscle atrophy. No suspicious bone marrow placement. Previous insufficie ncy fracture involving the medial tibial plateau has healed. Normal popliteal artery anatomy. IMPRESSION: 1. Redemonstrated moderate to severe medial compartmental osteoarthrosis, slightly worsened. The oste ochondral defect along the mid weightbearing aspect of the medial femoral condyle has deepened and en larged measuring 11 x 7 mm. Diffusely degenerative, torn, and diminutive medial meniscus. 2. Severe osteoarthrosis progressed along the lateral facets of the patellofemoral compartment. Moder ate along the medial facet the patellofemoral compartment. 3. Edema within the suprapatellar fat pad and inferolateral to the patella within Hoffa's fat. Findin gs may be seen with fat pad impingement syndrome. 4. Mild insertional quadriceps tendinosis has increased. 5. The previous insufficiency fracture along the medial tibial plateau has healed in the interval.
== END | disposition home or self-care (01) ==
LOC: RADMRIMAIN 12:30
PROVIDERS: ATTEND Orthopaedic Surgery
DX: M17.12 Unilateral primary osteoarthritis, left knee (principal)

== ENCOUNTER → 2022-05-16 | Outpatient (CLI) | payer MEDICARE ==
[2022-05-17 00:53] LABS: Anion Gap 10.3 mmol/L (10.00-18.00); Carbon Dioxide 27.7 mmol/L (20.0-27.5); Potassium 4.3 mmol/L (3.5-5.5)
[2022-05-17 01:31] LABS: Basophils # (A) 0.05 X 10*3/uL (0.00-0.10); Basophils % (A) 0.8 %; Eosinophils # (A) 0.26 X 10*3/uL (0.04-0.35); Eosinophils % (A) 4.1 %; HCT 38.4 % (37.2-46.3); HGB 12.4 g/dL (12.0-15.0); Immature Grans, Automated 0.2 %; Lymphocytes % (A) 39.7 %; MCHC 32.3 g/dL (32.0-37.0); MCV 89.7 fL (80.0-97.0); Mean Platelet Volume 9.7 fL (9.5-12.2); Monocytes # (A) 0.48 X 10*3/uL (0.20-1.00); Monocytes % (A) 7.6 %; NRBC Per 100 WBC 0 /100 WBCS (0.0-0.0); Neutrophils # (A) 2.99 X 10*3/uL (1.80-7.70); Neutrophils % (A) 47.6 %; Platelet Count 235 X 10*3/uL (140-440); RBC 4.28 X 10*6/uL (4.10-5.20); RDW 12.9 % (11.5-14.5); WBC 6.29 X 10*3/uL (4.50-10.00)
== END | disposition home or self-care (01) ==
LOC: LABPAT 15:13
PROVIDERS: ATTEND Orthopaedic Surgery
DX: Z01.812 Encounter for preprocedural laboratory examination (principal); M23.92 Unspecified internal derangement of left knee
CPT/HCPCS: 80051; 85025

== ENCOUNTER 2022-05-31 09:06 | Day surgery (SDC) | payer MEDICARE ==
--- NOTE | 2022-05-30 13:17 | HP ---
HISTORY AND PHYSICAL DATE OF SURGERY: 05/31/2022. HISTORY OF PRESENT ILLNESS: Shelly Randle is a 61-year-old patient seen with progressive left knee pain. We discussed options for treatment. The patient elected to proceed with left knee arthroscopy. Consent was obtained. PAST MEDICAL HISTORY: Hypertension, hyperlipidemia. PAST SURGICAL HISTORY: Knee arthroscopy. DAILY MEDICATION: 1. Synthroid. 2. Atorvastatin. 3. Alprazolam. ALLERGIES: None. SOCIAL HISTORY: She denies tobacco use. PHYSICAL EVALUATION OF LEFT KNEE: Range of motion is -3/4 to 115. Mild effusion. Tenderness to medial joint line. Positive medial Dc's. Ligaments stable. Hip rotation without pain. Distal neurovascular exam intact. RADIOGRAPHS: Radiographs of the left knee reveals some moderate osteoarthritic changes. MRI of the left knee revealed medial meniscal tear and osteoarthritic changes. IMPRESSION: 1. Internal derangement of left knee with medial meniscal tear. 2. Left knee osteoarthritis. 3. Hyperlipidemia. 4. Hypothyroidism. PLAN: Left knee arthroscopy with partial medial meniscectomy and debridement. MMODL / IJN: [id number] /
[~2022-05-31 09:06] MED LIST changes: +LIDOCAINE 1% (10MG/ML) FOR IV START INTRADERMA PRN; +MIDAZOLAM 2 MG/2 ML VIAL IV PRN
[2022-05-31] MEDS ORDERED: PROPOFOL 10 MG/ML 20 ML VIAL IV ONE (10:15)
[2022-05-31] MEDS ORDERED: fentaNYL (PF) 50 MCG/ML 2 ML AMP ONE (10:15)
[2022-05-31] MEDS ORDERED: MIDAZOLAM 2 MG/2 ML VIAL ONE (10:15)
[2022-05-31] MEDS ORDERED: HYDROmorphone (PF) 1 MG/ML ONE (10:15)
[2022-05-31] MEDS ORDERED: LIDOCAINE 2% INJ 20 MG/ML (2 ML VIAL) ONE (10:15)
[2022-05-31] MEDS ORDERED: SUCCINYLCHOLINE CHLORIDE 200 MG/10 ML VIAL IV ONE (10:15)
[2022-05-31] MEDS ORDERED: BUPIVACAIN-EPI 0.25%-1:200,000 30 ML VIAL SQ ONE (10:20)
--- NOTE | 2022-05-31 11:09 | P.OP ---
Date of Procedure: 05/31/22 Preoperative Diagnosis: Internal derangement left knee Postoperative Diagnosis: 1. Tear medial and lateral meniscus left knee 2. Grade 4 chondromalacia femoral sulcus left knee 3. Reactive synovitis medial, lateral and suprapatellar compartments left knee Procedure(s) Performed: 1. Arthroscopic partial medial and lateral meniscectomy left knee 2. Arthroscopic microfracture femoral sulcus left knee 3. Arthroscopic partial synovectomy medial, lateral and suprapatellar compartments left knee Anesthesia: RANDELLA, local Surgeon: Ari Walker Estimated Blood Loss (ml): 5 Pathology: none sent Condition: stable Disposition: PACU Indications for Procedure: 61-year-old patient seen with progressive left knee pain. After treatment options were discussed, she elected to proceed with arthroscopy. Operative Findings: See description of procedure Description of Procedure: Patient was taken to the operative suite. Patient underwent a general anesthetic by the department of anesthesia. Patient was given preoperative antibiotics. The left lower extremity was placed in a well-padded arthroscopic leg hill. The left leg was prepped and draped in the normal sterile orthopedic fashion. A lateral parapatellar and suprapatellar incision was made. Trochars were inserted. Arthroscopy was initiated. Suprapatellar pouch revealed diffuse thick reactive synovitis. The patellofemoral joint appeared to articulate congruently. There with grade 4 chondral malacia of the femoral sulcus and the patella with both sides having exposed bone.. The scope was guided into the medial gutter. No loose bodies or plica were identified. The scope was then guided into the medial compartment. A medial parapatellar incision was made. Trocar inserted followed by probe. There was a radial tear involving the anterior horn of the medial meniscus. There were grade 2 chondromalacia changes of the medial compartment without significant osteochondral tearing. There was some thick reactive synovitis anteriorly. I performed a partial medial meniscectomy getting down to stable meniscal tissue. I performed a partial synovectomy decompressing the reactive synovitis. The residual meniscus was stable. There was good decompression of the synovitis. Scope and probe were then guided into the intercondylar notch. Cruciates were identified, probed and found to be stable. The scope and probe were then guided into lateral compartment. There was a radial tear mid body lateral meniscus. There were grade 1 chondromalacia changes of the lateral compartment with no tears. There was some thick reactive synovitis anteriorly. I performed a partial lateral meniscectomy performed a partial synovectomy. The residual meniscus was stable. There was good decompression of the synovitis. The scope was in guided back into the suprapatellar compartment. I introduced a motorized shaver into the suprapatellar compartment. I debrided some small piecemeal fragments of meniscus I encountered. I performed a partial synovectomy. Shaver was removed. I now introduced a microfracture awl. I performed a microfracture to the femoral sulcus penetrating the normal with resultant bleeding at the microfracture site. The residual osteochondral surface was not probed and noted to be stable. We again noted [id number] arthritis involving the patellofemoral compartment. There was good decompression of synovitis throughout the suprapatellar compartment. I took one more look around the entire knee, no residual debris. Instruments were now removed from the joint. The joint was infiltrated with .25% Marcaine. Steri-Strips were applied to the portal sites. Sterile dressings were applied. The patient was placed into a SELINA hose. No tourniquet was utilized. The patient was awakened, transferred to a bed and taken to recovery stable satisfactory condition.
[2022-05-31 11:20] VITALS: RESP 16; TEMP 96.8
[2022-05-31 12:31] VITALS: BP 132/74; PULSE 68
[2022-05-31] MEDS ORDERED: HYDROcodone/APAP 5-325MG 1 EACH TAB ONE (12:32)
[2022-05-31] MEDS ORDERED: HYDROcodone/APAP 5-325MG 1 EACH TAB PO ONE (12:33)
== END 2022-05-31 13:32 | disposition home or self-care (01) ==
LOC: OR 09:06
PROVIDERS: ATTEND Orthopaedic Surgery
DX: S83.282A Other tear of lateral meniscus, current injury, left knee, initial encounter (principal); S83.242A Other tear of medial meniscus, current injury, left knee, initial encounter; M17.12 Unilateral primary osteoarthritis, left knee; I10 Essential (primary) hypertension; E78.5 Hyperlipidemia, unspecified; E03.9 Hypothyroidism, unspecified; M94.262 Chondromalacia, left knee; M65.88 Other synovitis and tenosynovitis, other site
CPT/HCPCS: 29880; 29879; J2250; J0330; J1100; J2405; J0690; J3010; J1170; J2704; J2001

== ENCOUNTER 2022-07-18 12:01 | Inpatient (IN) | payer MEDICARE ==
[2022-07-18] MEDS ORDERED: KETOROLAC 15 MG/ML 1 ML VIAL IVP STA (12:30)
[2022-07-18] MEDS ORDERED: SODIUM CHLORIDE 0.9% 500 ML 500 ML IV STA (12:30)
--- NOTE | 2022-07-18 12:33 | ED ---
General Adult HPI - General Chief complaint: Abdominal Pain Stated complaint: lt sided abd pain Time Seen by Provider: 07/18/22 12:05 Source: patient, RN notes reviewed, old records reviewed Mode of arrival: ambulatory Limitations: no limitations - History of Present Illness Initial comments: This is a 62-year-old female presents emergency department stating that on July 16 she woke up started having lower abdominal pain she felt as though her abdomen was slightly swollen. Patient states the pain is been there ever since she complains of the left lower quadrant as where the pain is worse. Patient denies any chest pain or difficulty breathing shortest breath per patient denies any epigastric pain. Patient states the pain is localized to the left lower quadrant. Patient denies any dysuria hematuria urinary frequency. Patient denies any vaginal bleeding. Patient denies any nausea or vomiting or diarrhea. Patient denies any recent fever chills. Patient denies any cough or congestion. Patient denies swelling to legs or any calf tenderness. - Related Data Home Medications Medication Instructions Recorded Confirmed Levothyroxine Sodium [Synthroid] 75 mcg PO QAM 07/02/17 05/31/22 Atorvastatin [Lipitor] 40 mg PO QAM 01/25/18 05/31/22 Denosumab [Prolia] 60 mg SQ Q6M 03/28/21 05/31/22 ALPRAZolam [Xanax] 1 mg PO DAILY PRN 12/15/21 05/31/22 Omeprazole 20 mg PO DAILY 12/15/21 05/31/22 Previous Rx's Medication Instructions Recorded HYDROcodone/APAP 5-325MG [[place] 1 tab PO Q6HR PRN #18 tab 05/31/22 5-325] Allergies Allergy/AdvReac Type Severity Reaction Status Date / Time No Known Allergies Allergy Verified 07/18/22 15:45 Review of Systems ROS Statement: Those systems with pertinent positive or pertinent negative responses have been documented in the HPI. ROS Other: All systems not noted in ROS Statement are negative. Past Medical History Past Medical History: GERD/Reflux, Hyperlipidemia, Musculoskeletal Disorder, Osteoarthritis (OA), Thyroid Disorder Additional Past Medical History / Comment(s): osteoporosis, IBS, injured left knee in December, seasonal allergies History of Any Multi-Drug Resistant Organisms: None Reported Past Surgical History: Hysterectomy, Orthopedic Surgery Additional Past Surgical History / Comment(s): arthroscopy left knee x2, rotator cuff repair rt shoulder, D&C, colonoscopy, arthroscopic right knee surg. Past Anesthesia/Blood Transfusion Reactions: Previous Problems w/ Anesthesia Additional Past Anesthesia/Blood Transfusion Reaction / Comment(s): woke up during surgery one time Past Psychological History: Anxiety, Depression, Panic Disorder Smoking Status: Never smoker Past Alcohol Use History: Occasional Past Drug Use History: None Reported - Past Family History Mother Family Medical History: No Reported History General Exam - General Exam Comments Initial Comments: GENERAL: Patient is well-developed and well-nourished. Patient is nontoxic and well- hydrated and is in mild distress. ENT: Neck is soft and supple. No significant lymphadenopathy is noted. Oropharynx is clear. Moist mucous membranes. Neck has full range of motion without eliciting any pain. EYES: The sclera were anicteric and conjunctiva were pink and moist. Extraocular movements were intact and pupils were equal round and reactive to light. Eyelids were unremarkable. PULMONARY: Unlabored respirations. Good breath sounds bilaterally. No audible rales rhonchi or wheezing was noted. CARDIOVASCULAR: There is a regular rate and rhythm without any murmurs gallops or rubs. ABDOMEN: Patient has left lower quadrant abdominal tenderness SKIN: Skin is clear with no lesions or rashes and otherwise unremarkable. NEUROLOGIC: Patient is alert and oriented x3. Cranial nerves II through XII are grossly intact. Motor and sensory are also intact. Normal speech, volume and content. Symmetrical smile. MUSCULOSKELETAL: Normal extremities with adequate strength and full range of motion. No lower extremity swelling or edema. No calf tenderness. LYMPHATICS: No significant lymphadenopathy is noted PSYCHIATRIC: Normal psychiatric evaluation. Limitations: no limitations Course Vital Signs 07/18/22 07/18/22 07/18/22 12:03 12:47 15:14 Temperature 98.5 F Pulse Rate 74 74 67 Pulse Rate [ Pulse Oximetery ] Respiratory 22 16 16 Rate Blood Pressure 130/83 134/78 147/82 Blood Pressure [Right Arm] O2 Sat by Pulse 100 99 100 Oximetry 07/18/22 15:45 Temperature 97.2 F L Pulse Rate Pulse Rate [ 65 Pulse Oximetery ] Respiratory Rate Blood Pressure Blood Pressure 137/79 [Right Arm] O2 Sat by Pulse 98 Oximetry Medical Decision Making - Medical Decision Making Was pt. sent in by a medical professional or institution? @ -No Did you speak to anyone other than the patient for history? @ -No Did you review nursing and triage notes? @ -I agree with the nursing notes and triage notes Were old charts reviewed? @ -No Differential Diagnosis? @ -Differential Abdominal Pain Women: Appendicitis, Cholecystitis, diverticulosis, ischemic bowel, pancreatitis, hepatitis, UTI, gastroenteritis, AAA, incarcerated hernia, bowel obstruction, constipation, inflammatory bowel, hepatitis, peptic ulcer disease, splenic infarction, perforated viscus, vulvitis, ovarian torsion, PID, kidney stone, placenta abruption, this is not meant to be an all-inclusive list EKG interpreted by me (3pts min.)? @ -None X-rays interpreted by me (1pt min.)? @ -No CT interpreted by me (1pt min.)? @ -CT abdomen pelvis was interpreted by myself. It showed a inguinal hernia with strangulated omentum with extensive inflammation U/S interpreted by me (1pt. min.)? @ -None What testing was considered but not performed? (CT, X-rays, U/S, labs)? Why? @ -None What meds were considered but not given? Why? @ -None Did you discuss the management of the patient with other professionals? @ -I spoke with Dr. Crowell. Dr. Crowell agreed the patient needed to go to the OR so. Dr. Crowell will accept the admission. Did you reconcile home meds? @ -No Was smoking cessation discussed for >3mins.? @ -No Was critical care preformed (if so, how long)? @ -No Were there social determinants of health that impacted care today? How? (Homelessness, low income, unemployed, alcoholism, drug addiction, transportation, low edu. Level, literacy, decrease access to med. care, correction, rehab)? @ -No Was there de-escalation of care discussed even if they declined? (Discuss DNR or withdrawal of care, Hospice)? @ -No What co-morbidities impacted this encounter? (DM, HTN, Smoking, COPD, CAD, Cancer, CVA, Hep., AIDS, mental health diagnosis, sleep apnea, morbid obesity)? @ -No Was patient admitted / discharged? @ -Patient was admitted for surgery. Patient be going to the OR later today with Dr. Crowell. Patient was given some pain medication. Undiagnosed new problem with uncertain prognosis? @ -None Drug Therapy requiring intensive monitoring for toxicity (Heparin, Nitro, Insulin, Cardizem)? @ -No Were any procedures done? @ -No Diagnosis/symptom? @ -Inguinal hernia with strangulated omentum Acute, or Chronic, or Acute on Chronic? @ -Acute Uncomplicated (without systemic symptoms) or Complicated (systemic symptoms)? @ -Uncomplicated Side effects of treatment? @ -None Exacerbation, Progression, or Severe Exacerbation] @ -None Poses a threat to life or bodily function? @ -No - Lab Data Result diagrams: 07/18/22 12:32 07/18/22 12:32 Lab Results 07/18/22 07/18/22 07/18/22 Range/Units 12:32 12:32 12:32 WBC 8.2 (3.8-10.6) k/uL RBC 4.22 (3.80-5.40) m/uL Hgb 12.7 (11.4-16.0) gm/dL Hct 37.4 (34.0-46.0) % MCV 88.7 (80.0-100.0) fL MCH 30.1 (25.0-35.0) pg MCHC 33.9 (31.0-37.0) g/dL RDW 12.9 (11.5-15.5) % Plt Count 231 (150-450) k/uL MPV 7.2 Neutrophils % 62 % Lymphocytes % 28 % Monocytes % 6 % Eosinophils % 2 % Basophils % 1 % Neutrophils # 5.1 (1.3-7.7) k/uL Lymphocytes # 2.3 (1.0-4.8) k/uL Monocytes # 0.5 (0-1.0) k/uL Eosinophils # 0.1 (0-0.7) k/uL Basophils # 0.1 (0-0.2) k/uL Sodium 139 (137-145) mmol/L Potassium 4.0 (3.5-5.1) mmol/L Chloride 106 (98-107) mmol/L Carbon Dioxide 25 (22-30) mmol/L Anion Gap 8 mmol/L BUN 16 (7-17) mg/dL Creatinine 0.60 (0.52-1.04) mg/dL Est GFR (CKD-EPI)AfAm >90 (>60 ml/min/1.73 sqM) Est GFR (CKD-EPI)NonAf >90 (>60 ml/min/1.73 sqM) Glucose 95 (74-99) mg/dL Plasma Lactic Acid Devin 1.2 (0.7-2.0) mmol/L Calcium 9.0 (8.4-10.2) mg/dL Total Bilirubin 1.1 (0.2-1.3) mg/dL AST 34 (14-36) U/L ALT 32 (4-34) U/L Alkaline Phosphatase 98 (38-126) U/L Total Protein 7.3 (6.3-8.2) g/dL Albumin 4.2 (3.5-5.0) g/dL Amylase 56 (30-110) U/L Lipase 138 (23-300) U/L Urine Color Urine Appearance (Clear) Urine pH (5.0-8.0) Ur Specific [place] (1.001-1.035) Urine Protein (Negative) Urine Glucose (UA) (Negative) Urine Ketones (Negative) Urine Blood (Negative) Urine Nitrite (Negative) Urine Bilirubin (Negative) Urine Urobilinogen (<2.0) mg/dL Ur Leukocyte Esterase (Negative) 07/18/22 Range/Units 12:42 WBC (3.8-10.6) k/uL RBC (3.80-5.40) m/uL Hgb (11.4-16.0) gm/dL Hct (34.0-46.0) % MCV (80.0-100.0) fL MCH (25.0-35.0) pg MCHC (31.0-37.0) g/dL RDW (11.5-15.5) % Plt Count (150-450) k/uL MPV Neutrophils % % Lymphocytes % % Monocytes % % Eosinophils % % Basophils % % Neutrophils # (1.3-7.7) k/uL Lymphocytes # (1.0-4.8) k/uL Monocytes # (0-1.0) k/uL Eosinophils # (0-0.7) k/uL Basophils # (0-0.2) k/uL Sodium (137-145) mmol/L Potassium (3.5-5.1) mmol/L Chloride (98-107) mmol/L Carbon Dioxide (22-30) mmol/L Anion Gap mmol/L BUN (7-17) mg/dL Creatinine (0.52-1.04) mg/dL Est GFR (CKD-EPI)AfAm (>60 ml/min/1.73 sqM) Est GFR (CKD-EPI)NonAf (>60 ml/min/1.73 sqM) Glucose (74-99) mg/dL Plasma Lactic Acid Devin (0.7-2.0) mmol/L Calcium (8.4-10.2) mg/dL Total Bilirubin (0.2-1.3) mg/dL AST (14-36) U/L ALT (4-34) U/L Alkaline Phosphatase (38-126) U/L Total Protein (6.3-8.2) g/dL Albumin (3.5-5.0) g/dL Amylase (30-110) U/L Lipase (23-300) U/L Urine Color Yellow Urine Appearance Clear (Clear) Urine pH 6.5 (5.0-8.0) Ur Specific [place] 1.020 (1.001-1.035) Urine Protein Trace H (Negative) Urine Glucose (UA) Negative (Negative) Urine Ketones Negative (Negative) Urine Blood Negative (Negative) Urine Nitrite Negative (Negative) Urine Bilirubin Negative (Negative) Urine Urobilinogen <2.0 (<2.0) mg/dL Ur Leukocyte Esterase Negative (Negative) Disposition Clinical Impression: Incarcerated left inguinal hernia Disposition: ADMITTED IP TO THIS [facility] Referrals: Allan Kaur MD [Primary Care Provider] - 1-2 days Time of Disposition: 16:15
[2022-07-18 12:40] LABS: Basophils # (A) 0.1 k/uL (0-0.2); Basophils % (A) 1 %; Eosinophils # (A) 0.1 k/uL (0-0.7); Eosinophils % (A) 2 %; HCT 37.4 % (34.0-46.0); HGB 12.7 gm/dL (11.4-16.0); Lymphocytes # (A) 2.3 k/uL (1.0-4.8); Lymphocytes % (A) 28 %; MCH 30.1 pg (25.0-35.0); MCHC 33.9 g/dL (31.0-37.0); MCV 88.7 fL (80.0-100.0); Mean Platelet Volume 7.2; Monocytes # (A) 0.5 k/uL (0-1.0); Monocytes % (A) 6 %; Neutrophils # (A) 5.1 k/uL (1.3-7.7); Neutrophils % (A) 62 %; Platelet Count 231 k/uL (150-450); RBC 4.22 m/uL (3.80-5.40); RDW 12.9 % (11.5-15.5); WBC 8.2 k/uL (3.8-10.6)
[2022-07-18 12:58] LABS: Appearance,Urine Clear (Clear); Bilirubin,Urine Negative (Negative); Blood,Urine Negative (Negative); Color,Urine Yellow; Glucose,Urine (UA) Negative (Negative); Ketones,Urine Negative (Negative); Leukocyte Esterase,Urine Negative (Negative); Nitrite,Urine Negative (Negative); PH, Urine 6.5 (5.0-8.0); Protein,Urine Trace (Negative); Urobilinogen,Urine <2.0 mg/dL (<2.0)
[2022-07-18 13:10] LABS: ALT 32 U/L (4-34); AST 34 U/L (14-36); African American GFR (CKD) >90 (>60 ml/min/1.73 sqM); Albumin 4.2 g/dL (3.5-5.0); Alkaline Phosphatase 98 U/L (38-126); Amylase 56 U/L (30-110); Anion Gap 8 mmol/L; Blood Urea Nitrogen 16 mg/dL (7-17); Carbon Dioxide 25 mmol/L (22-30); Chloride 106 mmol/L (98-107); Glucose 95 mg/dL (74-99); Lipase 138 U/L (23-300); Non-African American GFR(CKD) >90 (>60 ml/min/1.73 sqM); Sodium 139 mmol/L (137-145); Total Bilirubin 1.1 mg/dL (0.2-1.3); Total Protein 7.3 g/dL (6.3-8.2)
--- NOTE | 2022-07-18 13:38 | CT ---
EXAMINATION TYPE: CT abdomen pelvis w con CT DLP: 935.8 mGycm, Automated exposure control for dose reduction was used. DATE OF EXAM: 07/18/2022 1:26 PM COMPARISON: None. CLINICAL INDICATION:Female, 62 years old with history of abdominal pain; LT side abdominal pain TECHNIQUE: Axial CT of the abdomen and pelvis. Sagittal and coronal reformats were created on a [employer] workstation. Contrast used:100 mL of Isovue 300 with IV Contrast, Oral contrast used: without Oral Contrast FINDINGS: LOWER CHEST: Unremarkable ABDOMEN LIVER: Diffusely hypoattenuating parenchyma. Right anterior perfusion anomaly suspicious for vascular shunting/filling hemangioma. GALLBLADDER AND BILE DUCTS: Unremarkable. PANCREAS: Unremarkable. SPLEEN: Unremarkable. ADRENAL GLANDS: Unremarkable. KIDNEYS AND URETERS: No evidence of hydronephrosis or renal calculus. Peripelvic renal cysts bilatera lly. PELVIS BLADDER: Unremarkable REPRODUCTIVE: Unremarkable. ABDOMEN & PELVIS STOMACH AND BOWEL: No evidence of bowel obstruction. The appendix is normal. Few scattered clonic div erticula present. No evidence of bowel inflammation. PERITONEUM/RETROPERITONEUM: There is fat stranding changes around some omental fat in the left lower abdomen which extends into the left inguinal canal. No evidence of pneumoperitoneum or free fluid. . VASCULATURE: No evidence of aortic aneurysm. Moderate to severe atherosclerosis of the arterial vascu lature. MUSCULOSKELETAL: No acute osseous abnormalities LYMPH NODES: No gross evidence for lymphadenopathy. SOFT TISSUE/ABDOMINAL WALL: Small fat-containing umbilical hernia. IMPRESSION: 1. Left inguinal canal hernia with omental fat extending into the hernia with extensive inflammation, findings of omental versus epiploic appendage strangulation/infarct. 2. Colonic diverticulosis without evidence of colonic diverticulitis. 3. Hepatic steatosis.
[2022-07-18] MEDS ORDERED: DEXAMETHASONE SOD PHOSPHATE 4 MG/ML 1 ML VIAL IV ONE (15:08)
[2022-07-18] MEDS ORDERED: LIDOCAINE 1% (10MG/ML) FOR IV START INTRADERMA PRN (15:08)
[2022-07-18] MEDS ORDERED: ONDANSETRON 4 MG/2 ML VIAL IVP ONE (15:08)
[2022-07-18] MEDS ORDERED: IV FLUID CONTINUATION 1,000 ML IV ONE (15:35)
[2022-07-18] MEDS ORDERED: HEPARIN SODIUM,PORCINE/PF 5,000 UNIT/0.5 ML SYRINGE SQ ONE (15:51)
--- NOTE | 2022-07-18 15:54 | P.GSHP ---
History of Present Illness H&P Date: 07/18/22 Chief Complaint: Incarcerated left inguinal hernia 61-year-old female came to the hospital with complaints of left lower abdominal pain for the last 3 days. Pain is been increasing in severity. She describes swelling there. Apparently she was concerned she had diverticulitis and believes she had diverticulosis previously. Last colonoscopy 3 years ago. Some anorexia. No nausea or vomiting. No bowel complaints. Underwent CT abdomen and pelvis showing an incarcerated left inguinal hernia containing fat with inflammatory changes suspicious for developing ischemia. - Review of Systems Comment: The patient denies any acute changes in vision or hearing, no dysphagia or odynophagia, no chest pain or shortness of breath, no dysuria or hematuria, no headache, no runny nose, no rectal bleeding or melena, no unexplained weight loss Past Medical History Past Medical History: GERD/Reflux, Hyperlipidemia, Musculoskeletal Disorder, Osteoarthritis (OA), Thyroid Disorder Additional Past Medical History / Comment(s): osteoporosis, IBS, injured left knee in December, seasonal allergies History of Any Multi-Drug Resistant Organisms: None Reported Past Surgical History: Hysterectomy, Orthopedic Surgery Additional Past Surgical History / Comment(s): arthroscopy left knee x2, rotator cuff repair rt shoulder, D&C, colonoscopy, arthroscopic right knee surg. Past Anesthesia/Blood Transfusion Reactions: Previous Problems w/ Anesthesia Additional Past Anesthesia/Blood Transfusion Reaction / Comment(s): woke up during surgery one time Past Psychological History: Anxiety, Depression, Panic Disorder Smoking Status: Never smoker Past Alcohol Use History: Occasional Past Drug Use History: None Reported - Past Family History Mother Family Medical History: No Reported History Medications and Allergies Home Medications Medication Instructions Recorded Confirmed Type Levothyroxine Sodium [Synthroid] 75 mcg PO QAM 07/02/17 05/31/22 History Atorvastatin [Lipitor] 40 mg PO QAM 01/25/18 05/31/22 History Denosumab [Prolia] 60 mg SQ Q6M 03/28/21 05/31/22 History ALPRAZolam [Xanax] 1 mg PO DAILY PRN 12/15/21 05/31/22 History Omeprazole 20 mg PO DAILY 12/15/21 05/31/22 History HYDROcodone/APAP 5-325MG [[place] 1 tab PO Q6HR PRN #18 tab 05/31/22 Rx 5-325] Allergies Allergy/AdvReac Type Severity Reaction Status Date / Time No Known Allergies Allergy Verified 07/18/22 15:45 Surgical - Exam Vital Signs Temp Pulse Resp BP Pulse Ox 98.5 F 74 22 130/83 100 07/18/22 12:03 07/18/22 12:03 07/18/22 12:03 07/18/22 12:03 07/18/22 12:03 Physical exam: General: Well-developed, well-nourished HEENT: Normocephalic, sclerae nonicteric Abdomen: Tenderness left lower quadrant with incarcerated hernia unable to reduce, nondistended Extremities: No edema Neuro: Alert and oriented Results - Labs 07/18/22 12:32 07/18/22 12:32 Abnormal Lab Results - Last 24 Hours (Table) 07/18/22 Range/Units 12:42 Urine Protein Trace H (Negative) Diabetes panel 07/18/22 Range/Units 12:32 Sodium 139 (137-145) mmol/L Potassium 4.0 (3.5-5.1) mmol/L Chloride 106 (98-107) mmol/L Carbon Dioxide 25 (22-30) mmol/L BUN 16 (7-17) mg/dL Creatinine 0.60 (0.52-1.04) mg/dL Glucose 95 (74-99) mg/dL Calcium 9.0 (8.4-10.2) mg/dL AST 34 (14-36) U/L ALT 32 (4-34) U/L Alkaline Phosphatase 98 (38-126) U/L Total Protein 7.3 (6.3-8.2) g/dL Albumin 4.2 (3.5-5.0) g/dL Calcium panel 07/18/22 Range/Units 12:32 Calcium 9.0 (8.4-10.2) mg/dL Albumin 4.2 (3.5-5.0) g/dL Pituitary panel 07/18/22 Range/Units 12:32 Sodium 139 (137-145) mmol/L Potassium 4.0 (3.5-5.1) mmol/L Chloride 106 (98-107) mmol/L Carbon Dioxide 25 (22-30) mmol/L BUN 16 (7-17) mg/dL Creatinine 0.60 (0.52-1.04) mg/dL Glucose 95 (74-99) mg/dL Calcium 9.0 (8.4-10.2) mg/dL Adrenal panel 07/18/22 Range/Units 12:32 Sodium 139 (137-145) mmol/L Potassium 4.0 (3.5-5.1) mmol/L Chloride 106 (98-107) mmol/L Carbon Dioxide 25 (22-30) mmol/L BUN 16 (7-17) mg/dL Creatinine 0.60 (0.52-1.04) mg/dL Glucose 95 (74-99) mg/dL Calcium 9.0 (8.4-10.2) mg/dL Total Bilirubin 1.1 (0.2-1.3) mg/dL AST 34 (14-36) U/L ALT 32 (4-34) U/L Alkaline Phosphatase 98 (38-126) U/L Total Protein 7.3 (6.3-8.2) g/dL Albumin 4.2 (3.5-5.0) g/dL Assessment and Plan (1) Incarcerated left inguinal hernia Narrative/Plan: 62-year-old female with incarcerated left inguinal hernia. Options reviewed. Both open and laparoscopic approaches to the hernia repair were discussed. Patient is concerned about developing blood clots. Given the incarcerated nature of this hernia we have decided to proceed with open left inguinal hernia repair with mesh. Patient may require resection of the strangulated contents. R Risks of bleeding, infection, recurrence, bladder and bowel injury, numbness, nerve injury were discussed with the patient. The patient understands and wishes to proceed. Current Visit: Yes Status: Acute Code(s): K40.30 - UNIL INGUINAL HERNIA, W OBST, W/O GANGR, NOT SPCF RECUR SNOMED Code(s): 102764103
[2022-07-18] MEDS ORDERED: METOCLOPRAMIDE 5 MG/ML 2 ML VIAL ONE (16:02)
[2022-07-18] MEDS ORDERED: MIDAZOLAM 2 MG/2 ML VIAL IV ONE (16:05)
[2022-07-18] MEDS ORDERED: BUPIVACAIN-EPI 0.25%-1:200,000 30 ML VIAL SQ ONE ×2 (16:13→16:36)
[2022-07-18] MEDS ORDERED: MIDAZOLAM 2 MG/2 ML VIAL ONE (16:15)
[2022-07-18] MEDS ORDERED: ROCURONIUM 10 MG/ML (5 ML VIAL) IV ONE (16:15)
[2022-07-18] MEDS ORDERED: NEOSTIGMINE 1 MG/ML 10 ML VIAL ONE (16:15)
[2022-07-18] MEDS ORDERED: PROPOFOL 10 MG/ML 20 ML VIAL IV ONE (16:15)
[2022-07-18] MEDS ORDERED: fentaNYL (PF) 50 MCG/ML 2 ML AMP ONE (16:15)
[2022-07-18] MEDS ORDERED: GLYCOPYRROLATE 0.2 MG/ML 2 ML VIAL ONE (16:15)
[2022-07-18] MEDS ORDERED: LIDOCAINE 2% INJ 20 MG/ML (2 ML VIAL) ONE (16:15)
[2022-07-18] MEDS ORDERED: SUCCINYLCHOLINE CHLORIDE 200 MG/10 ML VIAL IV ONE (16:15)
[2022-07-18] MEDS ORDERED: LACTATED RINGERS 1,000 ML IV ONE (16:47)
[2022-07-18] MEDS ORDERED: ACETAMINOPHEN TAB 325 MG TAB PO PRN (17:26)
[2022-07-18] MEDS ORDERED: ONDANSETRON 4 MG/2 ML VIAL IVP PRN (17:26)
[2022-07-18] MEDS ORDERED: NALOXONE 0.4 MG/ML 1 ML VIAL IV PRN (17:26)
--- NOTE | 2022-07-18 17:32 | P.OP ---
Date of Procedure: 07/18/22 Procedure(s) Performed: PREOPERATIVE DIAGNOSIS: Incarcerated left inguinal hernia POSTOPERATIVE DIAGNOSIS: Same PROCEDURE: Open repair incarcerated left inguinal hernia with mesh SURGEON: Dr. Crowell ANESTHESIA: General OPERATIVE PROCEDURE DETAILS: Patient was placed in the operating table in the supine position and placed under general anesthesia. An oblique incision was made in the left groin. Dissection down through the subcutaneous tissues took place using electrocautery. The external oblique fascia was incised using a scalpel. This opening was lengthened using the Metzenbaum scissors. The round ligament was divided using 3-0 silk ties. The patient's incarcerated hernia was easily identified coming from the indirect space. Dissection of the hernia sac allowed us to reduce the ischemic fat back into the peritoneal cavity. This was thought to be a large portion of pericolonic fat by palpation. It was partially viable and I decided not to excise this fat at this time. The defect in the indirect space was closed using a short running locking 2-0 Vicryl suture. A portion of a 2 inch by four-inch flat Prolene mesh as cut to fit on the exposed fascia. This was sutured to the pubic tubercle the folding edge of the inguinal ligament and the conjoined tendon using interrupted 2-0 Vicryl sutures. The external oblique was then reapproximated using a running 2-0 Vicryl suture. The subcutaneous tissues were reapproximated using a 3-0 Vicryl sutures. The skin was closed using 4-0 Monocryl sutures. Steri-Strips and sterile dressings were then applied. TYPE OF MESH USED: Flat Prolene LOCATION OF MESH: [place] FIXATION: 2-0 Vicryl PREOPERATIVE DISCUSSION ON SMOKING CESSASTION: Yes PREOPERATIVE DISCUSSION ON MORBID OBESITY: Yes PREOPERATIVE DISCUSSION ON APPROPRIATE USE OF NARCOTIC USE: Yes PREOPERATIVE EDUCATION: Multi Modal, Smoking Cessation and Weight Loss with BMI over 35. DISPOSITION: Stable to recovery room
[2022-07-18] MEDS: KETOROLAC 15 MG/ML 1 ML VIAL IVP SCH (18:12)
[2022-07-18] MEDS: D5-0.45% NACL WITH KCL 20MEQ/L 1,000 ML IV SCH (19:10)
[2022-07-18] MEDS: HYDROmorphone 1 MG/ML 1 ML SYRINGE IVP PRN (21:07)
[2022-07-18] MEDS: FAMOTIDINE 20 MG TAB PO SCH (21:07)
[2022-07-18] MEDS: DOCUSATE 100 MG CAP PO SCH (21:07)
[2022-07-19] MEDS: KETOROLAC 15 MG/ML 1 ML VIAL IVP SCH ×4 (01:01→18:28)
[2022-07-19] MEDS: HEPARIN SODIUM,PORCINE/PF 5,000 UNIT/0.5 ML SYRINGE SQ SCH ×3 (01:02→16:31)
[2022-07-19] MEDS: HYDROmorphone 1 MG/ML 1 ML SYRINGE IVP PRN ×2 (03:14→16:28)
[2022-07-19] MEDS: LEVOTHYROXINE 75 MCG TAB PO SCH (06:55)
[2022-07-19] MEDS ORDERED: HYDROmorphone 0.5 MG/0.5 ML SYRINGE IVP PRN (07:00)
[2022-07-19] MEDS ORDERED: METOCLOPRAMIDE 5 MG/ML 2 ML VIAL IVP PRN (07:00)
[2022-07-19] MEDS: DOCUSATE 100 MG CAP PO SCH ×2 (08:17→21:08)
[2022-07-19] MEDS: FAMOTIDINE 20 MG TAB PO SCH ×2 (08:17→21:08)
[2022-07-19] MEDS: PANTOPRAZOLE 40 MG TABLET PO SCH ×2 (08:17→08:33)
[2022-07-19] MEDS: ATORVASTATIN 40 MG TAB PO SCH (08:17)
[2022-07-19] MEDS: HYDROcodone/APAP 5-325MG 1 EACH TAB PO PRN (08:18)
[2022-07-19] MEDS: D5-0.45% NACL WITH KCL 20MEQ/L 1,000 ML IV SCH (08:19)
--- NOTE | 2022-07-19 08:22 | P.CONS ---
History of Present Illness - Reason for Consult Consult date: 07/19/22 Medical management Requesting physician: Hayes Crowell - Chief Complaint Left lower quadrant abdominal pain - History of Present Illness The patient is postop day #1 for incarcerated left inguinal hernia. The patient states she feels much improved but still has postop pain. Seems to be tolerating diet this morning. No fever or chills stated. Review of Systems Constitutional: Denies chills, Denies fever Eyes: denies blurred vision, denies pain Ears, nose, mouth and throat: Denies headache, Denies sore throat Cardiovascular: Denies chest pain, Denies shortness of breath Gastrointestinal: Reports as per HPI, Reports abdominal pain Past Medical History Past Medical History: GERD/Reflux, Hyperlipidemia, Musculoskeletal Disorder, Osteoarthritis (OA), Thyroid Disorder Additional Past Medical History / Comment(s): osteoporosis, IBS, injured left knee in December, seasonal allergies History of Any Multi-Drug Resistant Organisms: None Reported Past Surgical History: Hysterectomy, Orthopedic Surgery Additional Past Surgical History / Comment(s): arthroscopy left knee x2, rotator cuff repair rt shoulder, D&C, colonoscopy, arthroscopic right knee surg, Hernia repair for incarcerated hernia (07/18/22) Past Anesthesia/Blood Transfusion Reactions: Previous Problems w/ Anesthesia Additional Past Anesthesia/Blood Transfusion Reaction / Comm: woke up during surgery one time Past Psychological History: Anxiety, Depression, Panic Disorder Smoking Status: Never smoker Past Alcohol Use History: Occasional Past Drug Use History: None Reported - Past Family History Mother Family Medical History: No Reported History Medications and Allergies Home Medications Medication Instructions Recorded Confirmed Type Levothyroxine Sodium [Synthroid] 75 mcg PO DAILY 07/02/17 07/18/22 History Atorvastatin [Lipitor] 40 mg PO DAILY 01/25/18 07/18/22 History Denosumab [Prolia] 60 mg SQ Q180D 03/28/21 07/18/22 History ALPRAZolam [Xanax] 1 mg PO TID PRN 12/15/21 07/18/22 History Omeprazole 20 mg PO DAILY 07/18/22 07/18/22 History Allergies Allergy/AdvReac Type Severity Reaction Status Date / Time No Known Allergies Allergy Verified 07/18/22 19:22 Physical Exam Vitals: Vital Signs Temp Pulse Pulse Pulse Resp BP BP 07/19/22 02:00 98.6 F 101 H 16 135/77 07/18/22 20:00 96.9 F L 54 L 16 130/82 07/18/22 18:40 97.2 F L 50 L 18 124/72 07/18/22 18:18 64 18 135/70 07/18/22 18:07 60 16 129/64 07/18/22 17:52 61 16 119/64 07/18/22 17:37 96.9 F L 77 16 129/63 07/18/22 15:45 97.2 F L 65 137/79 07/18/22 15:14 67 16 147/82 07/18/22 12:47 74 16 134/78 07/18/22 12:03 98.5 F 74 22 130/83 Pulse Ox 07/19/22 02:00 99 07/18/22 20:00 98 07/18/22 18:40 98 07/18/22 18:18 96 07/18/22 18:07 96 07/18/22 17:52 100 07/18/22 17:37 98 07/18/22 15:45 98 07/18/22 15:14 100 07/18/22 12:47 99 07/18/22 12:03 100 Intake and Output 07/18/22 07/19/22 07/19/22 22:59 06:59 14:59 Intake Total 1650 480 Output Total 7 Balance 1643 480 Intake: IV 1650 Oral 480 Output: Estimated Blood Loss 7 Other: Voiding Method Toilet # Voids 2 2 Weight 65.771 kg - Constitutional General appearance: no acute distress - EENT Eyes: EOMI - Neck Neck: no lymphadenopathy - Respiratory Respiratory: bilateral: CTA - Cardiovascular Rhythm: regular Heart sounds: normal: S1, S2 Abnormal Heart Sounds: no S3 Gallop - Gastrointestinal General gastrointestinal: tenderness Localized gastrointestinal: tender: RLQ - Psychiatric Psychiatric: A&O x's 3 Results CBC & Chem 7: 07/18/22 12:32 07/18/22 12:32 Labs: Abnormal Lab Results - Last 24 Hours (Table) 07/18/22 Range/Units 12:42 Urine Protein Trace H (Negative) Assessment and Plan (1) Hypothyroidism Current Visit: Yes Status: Acute Code(s): E03.9 - HYPOTHYROIDISM, UNSPECIFIED SNOMED Code(s): 25853512 (2) Osteoarthritis of knees, bilateral Current Visit: Yes Status: Acute Code(s): M17.0 - BILATERAL PRIMARY OSTEOARTHRITIS OF KNEE SNOMED Code(s): 200204311645645 (3) Incarcerated left inguinal hernia Current Visit: Yes Status: Acute Code(s): K40.30 - UNIL INGUINAL HERNIA, W OBST, W/O GANGR, NOT SPCF RECUR SNOMED Code(s): 851202277 Plan: Reconcile home medications. Advance diet per surgery. Pain control. Hopefully discharge in next 24-48 hours if stable.
--- NOTE | 2022-07-19 14:45 | P.PN ---
Subjective Progress Note Date: 07/19/22 CHIEF COMPLAINT: Incarcerated left inguinal hernia HISTORY OF PRESENT ILLNESS: Patient is postop day #1 status post open repair incarcerated left inguinal hernia with mesh. Patient does report pain in the left inguinal area. She reports pain is decreased and feels more surgical since admission. Denies any nausea or vomiting. She did have a bowel movement. Afebrile. PHYSICAL EXAM: VITAL SIGNS: Reviewed. GENERAL: Well-developed in no acute distress. HEENT: No sclera icterus. Extraocular movements grossly intact. Moist buccal mucosa. Head is atraumatic, normocephalic. ABDOMEN: Soft. Nondistended. Left inguinal incision site with bruising noted. There is soft. Mild tenderness with palpation. Minimal swelling noted NEUROLOGIC: Alert and oriented. Cranial nerves II through XII grossly intact. ASSESSMENT: 1. Incarcerated left inguinal hernia status post open repair with mesh PLAN: -Continue pain management -Continue regular diet -Encouraged patient to ambulate -Continue to monitor Physician Assignment Officer note has been reviewed by physician. Signing provider agrees with the documented findings, assessment, and plan of care. Objective - Vital Signs Vital signs: Vital Signs Temp 97.3 F L 07/19/22 07:18 Pulse 46 L 07/19/22 07:18 Resp 17 07/19/22 07:18 BP 105/65 07/19/22 07:18 Pulse Ox 94 L 07/19/22 07:18 FiO2 Intake & Output 07/18/22 07/19/22 07/19/22 18:59 06:59 18:59 Intake Total 1650 480 Output Total 7 Balance 1643 480 Weight 65.771 kg Intake: IV 1650 Oral 480 Output: Estimated Blood Loss 7 Other: Voiding Method Toilet # Voids 2 - Labs CBC & Chem 7: 07/18/22 12:32 07/18/22 12:32
[2022-07-19] MEDS: ALPRAZolam 1 MG TAB PO PRN (21:08)
[2022-07-20] MEDS: ALPRAZolam 1 MG TAB PO PRN (00:14)
[2022-07-20] MEDS: KETOROLAC 15 MG/ML 1 ML VIAL IVP SCH ×3 (00:14→13:12)
[2022-07-20] MEDS: HEPARIN SODIUM,PORCINE/PF 5,000 UNIT/0.5 ML SYRINGE SQ SCH ×2 (00:14→10:03)
[2022-07-20] MEDS: LEVOTHYROXINE 75 MCG TAB PO SCH (06:39)
[2022-07-20 07:49] VITALS: RESP 16
[2022-07-20] MEDS: PANTOPRAZOLE 40 MG TABLET PO SCH (09:06)
--- NOTE | 2022-07-20 09:06 | P.PN ---
Subjective Progress Note Date: 07/20/22 Principal diagnosis: Left lower quadrant abdominal pain This is a 62-year-old female who is postop day #2 for incarcerated left inguinal hernia. Patient reports she is feeling slightly better, and is finally passing flatus. She was able to get a little sleep last night. no other current complaints. Objective - Vital Signs Vital signs: Vital Signs Temp 98.3 F 07/20/22 07:48 Pulse 60 07/20/22 07:48 Resp 16 07/20/22 07:48 BP 113/74 07/20/22 07:48 Pulse Ox 97 07/20/22 07:48 FiO2 Intake & Output 07/19/22 07/20/22 07/20/22 18:59 06:59 18:59 Other: Voiding Method Toilet # Voids 4 3 # Bowel Movements 0 - Constitutional General appearance: Present: cooperative. Absent: no acute distress - EENT Eyes: Present: EOMI, PERRLA - Neck Neck: Present: normal ROM. Absent: lymphadenopathy - Respiratory Respiratory: bilateral: CTA - Cardiovascular Rhythm: regular Heart sounds: normal: S1, S2 - Gastrointestinal General gastrointestinal: Present: normal bowel sounds, soft, tenderness - Integumentary Integumentary: Present: normal, normal turgor - Psychiatric Psychiatric: Present: A&O x's 3, appropriate affect, intact judgment & insight - Labs CBC & Chem 7: 07/18/22 12:32 07/18/22 12:32 Assessment and Plan (1) Hypothyroidism Current Visit: Yes Status: Acute Code(s): E03.9 - HYPOTHYROIDISM, UNSPECIFIED SNOMED Code(s): 32054561 (2) Incarcerated left inguinal hernia Current Visit: Yes Status: Acute Code(s): K40.30 - UNIL INGUINAL HERNIA, W OBST, W/O GANGR, NOT SPCF RECUR SNOMED Code(s): 112180517 (3) Osteoarthritis of knees, bilateral Current Visit: Yes Status: Acute Code(s): M17.0 - BILATERAL PRIMARY OSTEOARTHRITIS OF KNEE SNOMED Code(s): 800008157610485 Plan: Continue with pain control. Okay for discharge from a medical standpoint when cleared by surgeon. Patient seen and evaluated by nurse practitioner, physician in agreement with plan
[2022-07-20] MEDS: D5-0.45% NACL WITH KCL 20MEQ/L 1,000 ML IV SCH (10:03)
[2022-07-20] MEDS: ATORVASTATIN 40 MG TAB PO SCH (10:42)
[2022-07-20] MEDS: DOCUSATE 100 MG CAP PO SCH (10:42)
[2022-07-20] MEDS: FAMOTIDINE 20 MG TAB PO SCH (10:42)
[2022-07-20 14:11] VITALS: BP 146/88; PULSE 70; TEMP 98.1
--- NOTE | 2022-07-20 15:17 | P.DS ---
Providers Date of admission: 07/18/22 16:19 Expected date of discharge: 07/20/22 Attending physician: Hayes Crowell Consults: 07/18/22 17:26 Consult Physician Routine Consulting Provider: Allan Kaur Consult Reason/Comments: Medical management Do you want consulting provider notified?: Yes Primary care physician: Allan Kaur Hospital Course: Discharge diagnosis 1. Incarcerated left inguinal hernia status post open repair with mesh Hospital course 61-year-old female came to the hospital with complaints of left lower abdominal pain for the last [address] abdomen and pelvis showing an incarcerated left inguinal hernia containing fat with inflammatory changes suspicious for developing ischemia. Patient status post open repair of incarcerated left inguinal hernia with mesh. Patient tolerated surgery well. Her pain is controlled. She is tolerating diet. She is having flatus. She is afebrile. Patient has minimal bruising on the incision site. Otherwise clean dry and intact. She is stable for discharge. Please refer to chart for any further details. Physician Ornamental [employer] Worker Helper note has been reviewed by physician. Signing provider agrees with the documented findings, assessment, and plan of care. Patient Condition at Discharge: Stable Plan - Discharge Summary Discharge Rx Participant: No New Discharge Prescriptions: New HYDROcodone/APAP 5-325MG [[place] 5-325] 1 tab PO Q6HR PRN 3 Days #12 tab PRN Reason: Pain Docusate [Colace] 100 mg PO BID #30 capsule Ibuprofen [Motrin] 600 mg PO Q8HR PRN #30 tab PRN Reason: Pain Continue Levothyroxine Sodium [Synthroid] 75 mcg PO DAILY Atorvastatin [Lipitor] 40 mg PO DAILY ALPRAZolam [Xanax] 1 mg PO TID PRN PRN Reason: Anxiety Denosumab [Prolia] 60 mg SQ Q180D Omeprazole 20 mg PO DAILY Discharge Medication List Levothyroxine Sodium [Synthroid] 75 mcg PO DAILY 07/02/17 [History] Atorvastatin [Lipitor] 40 mg PO DAILY 01/25/18 [History] Denosumab [Prolia] 60 mg SQ Q180D 03/28/21 [History] ALPRAZolam [Xanax] 1 mg PO TID PRN 12/15/21 [History] Omeprazole 20 mg PO DAILY 07/18/22 [History] Docusate [Colace] 100 mg PO BID #30 capsule 07/20/22 [Rx] HYDROcodone/APAP 5-325MG [[place] 5-325] 1 tab PO Q6HR PRN 3 Days #12 tab 07/20/22 [Rx] Ibuprofen [Motrin] 600 mg PO Q8HR PRN #30 tab 07/20/22 [Rx] Follow up Appointment(s)/Referral(s): Hayes Crowell MD [Medical Doctor] - 07/27/22 9:15 am Allan Kaur MD [Primary Care Provider] - 1-2 days (office busy at time of discharge.. Please call to schedule appointment ) Patient Instructions/Handouts: Inguinal Hernia Repair (DC) Activity/Diet/Wound Care/Special Instructions: No driving while taking [place] No lifting over 10 pounds You may shower. No soaking or tub baths for 2 weeks Very light activity until you are reevaluated at your follow up appointment with your surgeon Discharge Disposition: HOME SELF-CARE
[2022-07-20] MEDS: HYDROcodone/APAP 5-325MG 1 EACH TAB PO PRN (16:04)
== END 2022-07-20 16:31 | disposition home or self-care (01) | DRG 352 ==
LOC: EC 12:01 → 4SSUR 16:19
PROVIDERS: ADMIT Surgery; ATTEND Surgery
PROC: 0YU60JZ Supplement Left Inguinal Region with Synthetic Substitute, Open Approach (ICD-10-PCS; principal; 2022-07-18 15:30)
DX: K40.30 Unilateral inguinal hernia, with obstruction, without gangrene, not specified as recurrent (principal); E03.9 Hypothyroidism, unspecified; E78.5 Hyperlipidemia, unspecified; K21.9 Gastro-esophageal reflux disease without esophagitis; F32.A Depression, unspecified; F41.0 Panic disorder [episodic paroxysmal anxiety]; I10 Essential (primary) hypertension; K58.9 Irritable bowel syndrome, unspecified; M17.0 Bilateral primary osteoarthritis of knee; M81.0 Age-related osteoporosis without current pathological fracture; Z79.890 Hormone replacement therapy; Z79.899 Other long term (current) drug therapy; Z90.710 Acquired absence of both cervix and uterus
CPT/HCPCS: 36415; 74177; 80053; 81003; 82150; 83605; 83690; 85025; 96361; 96374; 99285

== ENCOUNTER → 2022-08-17 | Outpatient (CLI) | payer MEDICARE ==
--- NOTE | 2022-08-17 19:36 | CT ---
EXAMINATION TYPE: CT abdomen pelvis w con DATE OF EXAM: 08/17/2022 COMPARISON: 13 20 cc HISTORY: Post hernia removal Sx, pain, swelling, inflammation, Rash. CT DLP: 1400 mGycm CONTRAST: CT scan of the abdomen and pelvis is performed with Oral Contrast and with IV Contrast, patient injec so with 100cc mL of Isovue 300. FINDINGS: LUNG BASES-: No visible nodule. No infiltrate. LIVER/GB: No calcified gallstones. No space occupying hepatic lesion. Biliary tree is of normal ca liber. PANCREAS: No inflammation. No distinct mass. SPLEEN: No splenic enlargement. No lesion seen. ADRENALS: No nodule. No thickening. KIDNEYS/BLADDER: No hydronephrosis. No nephrolithiasis. Parapelvic renal cysts are noted. Urinary b ladder grossly unremarkable. BOWEL: Normal appendix. Normal bowel caliber. No inflammation. The patient is status post left ingu inal hernia repair which appears much improved relative to the prior study. There is mild stranding a t the surgical site which is presumed postoperative in nature and much improved from prior study. No fluid collections seen. No evidence for abscess. No free air. Small sliding-type hiatal hernia noted. Sigmoid diverticulosis without diverticulitis. GENITAL ORGANS: No gross abnormality. LYMPH NODES: No greater than 1cm abdominal or pelvic lymph nodes are appreciated. AORTA: No significant abnormality. OSSEOUS STRUCTURES: No significant abnormality is seen. OTHER: No significant additional abnormality is seen. IMPRESSION: 1. left inguinal hernia repair which appears much improved relative to the prior study. There is mild stranding at the surgical site which is presumed postoperative in nature and much improved from prio r study. No fluid collections seen. No evidence for abscess. No recurrent hernia.
== END | disposition home or self-care (01) ==
LOC: RADCTMAIN 14:54
PROVIDERS: ATTEND Surgery
DX: K40.90 Unilateral inguinal hernia, without obstruction or gangrene, not specified as recurrent (principal); K57.32 Diverticulitis of large intestine without perforation or abscess without bleeding
CPT/HCPCS: 74177; Q9967

== ENCOUNTER → 2023-02-01 | Outpatient (CLI) | payer MEDICARE ==
--- NOTE | 2023-02-01 11:49 | XR ---
EXAMINATION TYPE: XR lumbar spine 2 or 3V DATE OF EXAM: 02/01/2023 CLINICAL HISTORY: M 54.50 TECHNIQUE: Three views of the lumbar spine are submitted. COMPARISON: CT abdomen pelvis 08/17/2022 FINDINGS: There are 5 lumbar type vertebral bodies identified. No acute fracture or dislocation. Dextro scoliot ic curvature of the lumbar spine with apex at L2-L3. Minimal grade 1 anterolisthesis of L3 on L4 and L4 on L5. Lower lumbar spine facet arthropathy. Mild multilevel degenerative disc disease with disc s pace narrowing and endplate sclerosis. Vertebral body heights are within normal limits. The overlying soft tissue appears unremarkable. As described calcification of the aorta. IMPRESSION: 1. No acute fracture or dislocation is seen in the lumbar spine. 2. Mild multilevel degenerative disc disease and facet arthropathy. 3. Minimal grade 1 anterolisthesis of L3 on L4 and L4 on L5. 4. Dextro scoliotic curvature of the lumbar spine.
== END | disposition home or self-care (01) ==
LOC: RADXRMAIN 11:08
PROVIDERS: ATTEND Family Medicine
DX: M51.36 Other intervertebral disc degeneration, lumbar region (principal); M47.816 Spondylosis without myelopathy or radiculopathy, lumbar region; M43.16 Spondylolisthesis, lumbar region; M41.86 Other forms of scoliosis, lumbar region
CPT/HCPCS: 72100

== ENCOUNTER → 2023-02-22 | Outpatient (CLI) | payer MEDICARE ==
--- NOTE | 2023-02-22 19:54 | MR ---
EXAMINATION TYPE: MR lumbar spine wo con DATE OF EXAM: 02/22/2023 COMPARISON: None HISTORY: Paresthesia of skin, left leg. CONTRAST: 0 mL intravenous . TECHNIQUE: Multiplanar, multisequence images of the lumbar spine were acquired. FINDINGS: L5-S1: No significant disc bulge or disc herniation. No spinal canal stenosis. No foraminal stenosi s. L4-L5: No significant disc bulge or disc herniation. No spinal canal stenosis. No foraminal stenosi s. Facet hypertrophy is present within the right posterior lateral thecal sac compression. AP spinal canal stenosis is not present. L3-L4: No significant disc bulge or disc herniation. No spinal canal stenosis. No foraminal stenosi s. Facet hypertrophy is present with posterior lateral thecal sac compression. L2-L3: No significant disc bulge or disc herniation. No spinal canal stenosis. No foraminal stenosi s. L1-L2: No significant disc bulge or disc herniation. No spinal canal stenosis. No foraminal stenosi s. T12-L1: No significant disc bulge or disc herniation. No spinal canal stenosis. No foraminal stenos is. Disc desiccation is present through the lumbar spine. Disc heights and vertebral body heights are pre served. IMPRESSION: 1. Mild posterior lateral thecal sac compression from facet hypertrophy L3-4 L4-5.
== END | disposition home or self-care (01) ==
LOC: RADMRIMAIN 13:02
PROVIDERS: ATTEND Family Medicine
DX: M47.816 Spondylosis without myelopathy or radiculopathy, lumbar region (principal); R20.2 Paresthesia of skin
CPT/HCPCS: 72148

== ENCOUNTER → 2023-04-02 | Outpatient (CLI) | payer MEDICARE ==
--- NOTE | 2023-04-03 15:13 | MM ---
Reason for Exam: Screening (asymptomatic). Last mammogram was performed 1 year(s) and 2 month(s) ago. Patient History: Menarche at age 12. First Full-Term at age 29. Late child-bearing (after 29). Hysterectomy at age 47. Postmenopausal. Patient used Hormonal Contraceptives for 2 years. 04/25/2004, Benign Stereotactic Core Biopsy on the right side. Risk Values: Teresa 5 year model risk: 2.6%. NCI Lifetime model risk: 10.7%. Prior Study Comparison: 12/29/2019 Bilateral Screening Mammogram, [facility]. 12/31/2020 Bilateral Screening Mammogram, [facility]. 02/07/2022 Bilateral MG 3D screening mammo w/cad, [facility]. Tissue Density: The breast tissue is heterogeneously dense. This may lower the sensitivity of mammography. Findings: Analyzed By CAD. Pattern is symmetrical and stable. Core marker is within the right breast. No significant interval changes are evident. No suspicious groups of microcalcifications, spiculated or lobular masses, architectural distortion or other secondary signs of malignancy are mammographically apparent. Overall Assessment: Benign, BI-RAD 2 Management: Screening Mammogram of both breasts in 1 year. A negative mammogram report should not preclude additional follow up of suspicious palpable abnormalities. Patient should continue monthly self breast exam. A clinical breast exam by your physician is recommended on an annual basis and results should be correlated with mammographic findings. Electronically signed and approved by: Mahendra Alarcon D.O. Radiologis
== END | disposition home or self-care (01) ==
LOC: RADMAMWWP 14:10
PROVIDERS: ATTEND Obstetrics & Gynecology
DX: Z12.31 Encounter for screening mammogram for malignant neoplasm of breast (principal); Z78.0 Asymptomatic menopausal state
CPT/HCPCS: 77063; 77067

== ENCOUNTER → 2023-08-02 | Outpatient (CLI) | payer MEDICARE ==
--- NOTE | 2023-08-02 12:32 | XR ---
EXAMINATION TYPE: XR shoulder complete LT DATE OF EXAM: 08/02/2023 CLINICAL HISTORY: Left shoulder pain since Sunday TECHNIQUE: Three views of the left shoulder are obtained. COMPARISON: None. FINDINGS: There is no acute fracture/dislocation evident in the left shoulder. [id number] narr owing at the acromioclavicular joint with mild spurring. Glenohumeral joint is maintained. The visual ized ribs are intact. IMPRESSION: As above.
== END | disposition home or self-care (01) ==
LOC: RADXRMAIN 11:47
PROVIDERS: ATTEND Family Medicine
DX: M25.812 Other specified joint disorders, left shoulder (principal)

== ENCOUNTER → 2023-09-03 | Outpatient (CLI) | payer MEDICARE ==
--- NOTE | 2023-09-09 13:56 | MR ---
EXAMINATION TYPE: MR shoulder LT wo con DATE OF EXAM: 09/03/2023 COMPARISON: Outside radiograph 08/21/2023 HISTORY: 63-year-old female Lt shoulder pain TECHNIQUE: Multiplanar, multisequence imaging of the left shoulder is performed without contrast. FINDINGS: Incidentally, there is prominent edema and irregularity seen along the first, second, and third ribs. Findings may reflect acute and subacute rib fracture deformities. Correlate with relevant history of trauma. If no corresponding history, further evaluation such as with CT may be indicated. Moderate to severe degenerative change at the acromioclavicular joint with joint space narrowing, mar ginal spurring, and subchondral marrow signal change. No significant mass effect onto the underlying cuff. No effusion within the subacromial/subdeltoid bursa. Long head biceps tendon appears intact. Some heterogeneous signal of the subscapularis tendon which otherwise remains intact. There is a high-grade tear of the anterior to mid supraspinatus tendon measuring 1.4 cm long and 1.0 cm AP. Only minimal, thin fibers remain here. The infraspinatus tendon is intact. No atrophy of the rotator cuff musculature. Mild irregular cartilage thinning within portions of the glenohumeral joint which otherwise remains i ntact. No significant joint effusion. No discrete labral tear given the radiographic technique and no para labral cyst. No Hill-Sachs deformity or os acromiale. No suspicious bone marrow replacement. IMPRESSION: 1. Prominent edema and irregularity along the first, second, and third left-sided ribs, partially vis ualized. Findings suspected to represent acute/subacute rib fracture deformities. Correlate with rele vant history of trauma. If no corresponding history, further evaluation such as with CT may be indica so. 2. High-grade, nearly full-thickness tear of the anterior supraspinatus tendon measuring 1.4 x 1.0 cm . Only miniscule, thin fibers remain here. No significant rotator cuff muscle atrophy. 3. Moderate to severe AC joint OA.
== END | disposition home or self-care (01) ==
LOC: RADMRIMAIN 10:59
PROVIDERS: ATTEND Orthopaedic Surgery
DX: M19.012 Primary osteoarthritis, left shoulder (principal); M75.122 Complete rotator cuff tear or rupture of left shoulder, not specified as traumatic

== ENCOUNTER → 2023-09-14 | Outpatient (CLI) | payer MEDICARE ==
--- NOTE | 2023-09-16 21:06 | CT ---
EXAMINATION TYPE: CT chest wo con DATE OF EXAM: 09/14/2023 COMPARISON: Correlation MRI of left shoulder 09/03/2023. Also, previous CT abdomen -. HISTORY: 63-year-old female S2.20XA, left upper rib pain TECHNIQUE: Contiguous axial scanning of the chest without IV contrast. Coronal/sagittal reconstructio ns performed. CT DLP: 158.5mGycm. Automatic exposure control utilized for a dose reduction. FINDINGS: The heart is normal size without pericardial effusion. Ectatic aortic root at 3.5 cm and ascending aorta 3.6 cm. Conventional arch vessel branching anatomy. No thoracic lymph adenopathy by CT size criteria. Some strandy atelectasis or scarring at the lung bases. No consolidation or pleural effusion. There is a 1.5 cm nodule mid anterior epigastric region anterior to the left liver lobe. The exact et iology is unclear but stability from 08/17/2022 suggests a benign etiology. Prominent parapelvic cyst redemonstrated within the kidneys. Bones: No osseous destructive process seen. However, there are segmental subacute to healed fractures of the left second and third ribs. IMPRESSION: 1. Subacute to chronic segmental fractures left second and third ribs. Correlate for appropriate trau ma history. 2. Otherwise, no acute pulmonary process.
== END | disposition home or self-care (01) ==
LOC: RADCTMAIN 14:05
PROVIDERS: ATTEND Orthopaedic Surgery
DX: S20.20XA Contusion of thorax, unspecified, initial encounter (principal); S22.43XA Multiple fractures of ribs, bilateral, initial encounter for closed fracture; X58.XXXA Exposure to other specified factors, initial encounter
CPT/HCPCS: 71250

== ENCOUNTER 2024-04-21 11:48 | Emergency (ER) | payer MEDICARE ==
[2024-04-21 11:53] VITALS: TEMP 98.4
--- NOTE | 2024-04-21 13:01 | CT ---
EXAMINATION TYPE: CT brain cspine wo con CT DLP: 1309.9 mGycm, Automated exposure control for dose reduction was used. DATE OF EXAM: 04/21/2024 12:50 PM COMPARISON: None.. CLINICAL INDICATION:Female, 63 years old with history of Head injury; PAIN AFTER FALL AND HIT HEAD X5 DAYS AGO TECHNIQUE: Brain: Multiple axial CT images of the brain were obtained without IV contrast. Cspine: Axial CT images from the skull base to the inferior aspect of T2 we obtained without intraven ous contrast. Coronal and sagittal reformatted images were also reviewed. FINDINGS: Brain: Extra-axial spaces: No abnormal extra-axial fluid collections. Ventricular system: Within normal limits Cerebral parenchyma: No acute intraparenchymal hemorrhage or mass effect. The bynum-white junction is well differentiated. Scattered hypoattenuating areas are seen within the periventricular white matte r. Cerebellum: Unremarkable. Mass effect: No evidence of midline shift. Intracranial vasculature: unremarkable Soft tissues: Normal. Calvarium/osseous structures: No depressed skull fracture. Paranasal sinuses and mastoid air cells: Clear. Visualized orbits: Orbital contents are intact. Cervical spine: Fracture: None. Osseous structures: Unremarkable Vertebral alignment: Within normal limits. Spinal canal/Neural Foramina: No evidence of significant spinal canal narrowing. Multilevel facet art hropathy. No evidence for significant neural foraminal stenosis. Neck soft tissues: Prevertebral soft tissues are within normal limits. Other: The airway is patent. The lung apices are clear. IMPRESSION: 1. No acute intracranial process. 2. Nonspecific white matter changes, likely secondary to chronic small vessel ischemic disease. 3. No evidence of cervical spine fracture. [facility], , 04/21/2024 12:59 PM
--- NOTE | 2024-04-21 13:13 | ED ---
General Adult HPI - General Chief complaint: Head Injury Stated complaint: hit head/fall Time Seen by Provider: 04/21/24 13:11 Source: patient, RN notes reviewed Mode of arrival: ambulatory Limitations: no limitations - History of Present Illness Initial comments: 63-year-old female presented to the ER with a chief complaint of a fall. Patient states last Sunday she was ambulating to the bathroom in the morning when she woke up in her bathtub. She believes she hit her neck and head on the side of the tub. Patient reports she was feeling mildly dizzy prior to fall. She does not remember how long she was unconscious. No blood thinning medica tions. She reports since incident she has been having consistent dizzy spells. No history of vertigo. She describes it as "room spinning". Patient was seen by PCP the following the fall and received blood work. She has not gotten results yet. PCP advised her to come to the ER for further evaluation of fall with head injury. Patient also was complaining of right lower quadrant abdominal pain onset 2 days ago. It is sharp in nature. Denies any diarrhea or constipation, nausea or vomiting. No fevers or chills. No urinary complaints. No other injuries from fall. - Related Data Home Medications Medication Instructions Recorded Confirmed Levothyroxine Sodium [Synthroid] 75 mcg PO DAILY 07/02/17 04/21/24 Atorvastatin [Lipitor] 40 mg PO DAILY 01/25/18 04/21/24 ALPRAZolam [Xanax] 1 mg PO TID PRN 12/15/21 04/21/24 Omeprazole Magnesium [PriLOSEC OTC] 20 mg PO DAILY PRN 04/21/24 04/21/24 diphenhydrAMINE [Benadryl] 50 mg PO Q6H PRN 04/21/24 04/21/24 Previous Rx's Medication Instructions Recorded Meclizine [Antivert] 25 mg PO BID PRN #15 tab 04/21/24 Allergies Allergy/AdvReac Type Severity Reaction Status Date / Time No Known Allergies Allergy Verified 04/21/24 15:04 Review of Systems ROS Statement: Those systems with pertinent positive or pertinent negative responses have been documented in the HPI. ROS Other: All systems not noted in ROS Statement are negative. Past Medical History Past Medical History: GERD/Reflux, Hyperlipidemia, Musculoskeletal Disorder, Osteoarthritis (OA), Thyroid Disorder Additional Past Medical History / Comment(s): osteoporosis, IBS, injured left knee in December, seasonal allergies History of Any Multi-Drug Resistant Organisms: None Reported Past Surgical History: Hysterectomy, Orthopedic Surgery Additional Past Surgical History / Comment(s): arthroscopy left knee x2, rotator cuff repair rt shoulder, D&C, colonoscopy, arthroscopic right knee surg, Hernia repair for incarcerated hernia (07/18/22) Past Anesthesia/Blood Transfusion Reactions: Previous Problems w/ Anesthesia Additional Past Anesthesia/Blood Transfusion Reaction / Comment(s): woke up during surgery one time Past Psychological History: Anxiety, Depression, Panic Disorder Smoking Status: Never smoker Past Alcohol Use History: Occasional Past Drug Use History: None Reported - Past Family History Mother Family Medical History: No Reported History General Exam Limitations: no limitations General appearance: alert, in no apparent distress Eye exam: Present: normal appearance, PERRL, EOMI. Absent: scleral icterus, conjunctival injection, periorbital swelling Pupils: Present: normal accommodation ENT exam: Present: normal exam, normal oropharynx, mucous membranes moist Respiratory exam: Present: normal lung sounds bilaterally. Absent: respiratory distress, wheezes, rales, rhonchi, stridor Cardiovascular Exam: Present: regular rate, normal rhythm, normal heart sounds. Absent: systolic murmur, diastolic murmur, rubs, gallop, clicks GI/Abdominal exam: Present: soft, tenderness (Right lower quadrant), normal bowel sounds Extremities exam: Present: normal inspection, full ROM, normal capillary refill. Absent: tenderness, pedal edema, joint swelling, calf tenderness Neurological exam: Present: alert, oriented X3, CN II-XII intact Skin exam: Present: warm, dry, intact, normal color. Absent: rash Course Vital Signs 04/21/24 04/21/24 04/21/24 11:49 15:33 16:39 Temperature 98.4 F Pulse Rate 78 71 81 Respiratory 18 16 18 Rate Blood Pressure 122/77 134/76 128/79 O2 Sat by Pulse 99 97 94 L Oximetry Medical Decision Making - Medical Decision Making Was pt. sent in by a medical professional or institution (, PA, LATIN TEACHER, urgent care, hospital, or [facility]...) When possible be specific @ -Patient sent by PCP for further evaluation of fall. Did you speak to anyone other than the patient for history (EMS, parent, family, police, friend...)? What history was obtained from this source @ -No Did you review nursing and triage notes (agree or disagree)? Why? @ -I reviewed and agree with nursing and triage notes Were old charts reviewed (outside hosp., previous admission, EMS record, old EKG, old radiological studies, urgent care reports/EKG's, [facility] records)? Report findings @ -No old charts were reviewed Differential Diagnosis (chest pain, altered mental status, abdominal pain women, abdominal pain men, vaginal bleeding, weakness, fever, dyspnea, syncope, headache, dizziness, GI bleed, back pain, seizure, CVA, palpatations, mental health, musculoskeletal)? @ -Differential Dizziness:Benign paroxysmal positional Vertigo, Meniere's disease, otitis media, acoustic neuroma, vertebrobasilar insufficiency, cerebellar stroke, encephalitis, hypovolemic, arrhythmia, coronary artery syndrome, anemia, this is not meant to be an all-inclusive list EKG interpreted by me (3pts min.). @ -As above X-rays interpreted by me (1pt min.). @ -None done CT interpreted by me (1pt min.). @ -CT brain C-spine negative for acute intracranial process. No evidence of cervical fracture. CT abdomen pelvis negative for acute intra-abdominal process. U/S interpreted by me (1pt. min.). @ -None done What testing was considered but not performed or refused? (CT, X-rays, U/S, labs)? Why? @ -None What meds were considered but not given or refused? Why? @ -None Did you discuss the management of the patient with other professionals (professionals i.e. , PA, LATIN TEACHER, lab, RT, psych nurse, rn social work, engravings polisher, teacher, risk control officer, pillowcase cutter)? Give summary @ -No Was smoking cessation discussed for >3mins.? @ -No Was critical care preformed (if so, how long)? @ -No Were there social determinants of health that impacted care today? How? (Homelessness, low income, unemployed, alcoholism, drug addiction, transportation, low edu. Level, literacy, decrease access to med. care, skilled nursing, rehab)? @ -No Was there de-escalation of care discussed even if they declined (Discuss DNR or withdrawal of care, Hospice)? DNR status @ -No What co-morbidities impacted this encounter? (DM, HTN, Smoking, COPD, CAD, Cancer, CVA, ARF, Chemo, Hep., AIDS, mental health diagnosis, sleep apnea, morbid obesity)? @ -Thyroid disorder Was patient admitted / discharged? Hospital course, mention meds given and route, prescriptions, significant lab abnormalities, going to OR and other pertinent info. @ -Discharge. 63-year-old female presented to ER with a chief complaint of a fall. Patient has also been reporting consistent dizzy spells since this incident. She was sent in by PCP. History and physical exam completed. Vitals within normal limits. Patient no signs of acute distress. No acute neurological findings on exam. Due to dizziness laboratory studies will be obtained. Laboratory studies unremarkable. Troponin undetectable. TSH 7.690 with a free T4 1.19. CT brain/C-spine negative for acute process. Due to patient complaining of right lower quadrant abdominal pain. CT abdomen pelvis performed and negative. EKG showing no acute evidence of infarct or ischemia. Patient received 1 L IV fluids and p.o. meclizine for symptom control in the ER. Upon reevaluation, patient playing on cell phone no signs of acute distress. Results discussed with patient, all questions answered. As dizziness is worse with head motions, positional changes it is believed to be vertigo in nature. Meclizine prescribed. Advise close follow-up with PCP. Strict return parameters discussed. Patient discharged stable condition. Patient verbally expressed understanding agree with care plan. Case discussed with the attending, Undiagnosed new problem with uncertain prognosis? @ -No Drug Therapy requiring intensive monitoring for toxicity (Heparin, Nitro, Insul in, Cardizem)? @ -No Were any procedures done? @ -No Diagnosis/symptom? @ -fall/dizziness Acute, or Chronic, or Acute on Chronic? @ -Acute Uncomplicated (without systemic symptoms) or Complicated (systemic symptoms)? @ -Uncomplicated Side effects of treatment? @ -No Exacerbation, Progression, or Severe Exacerbation? @ -No Poses a threat to life or bodily function? How? (Chest pain, USA, MS, pneumonia, PE, COPD, DKA, ARF, appy, cholecystitis, CVA, Diverticulitis, Homicidal, Suicidal, threat to staff... and all critical care pts) @ -No - Lab Data Result diagrams: 04/21/24 13:26 04/21/24 13:26 Lab Results 04/21/24 04/21/24 04/21/24 Range/Units 13:26 13:26 13:26 WBC 6.9 (3.8-10.6) k/uL RBC 3.90 (3.80-5.40) m/uL Hgb 12.0 (11.4-16.0) gm/dL Hct 36.7 (34.0-46.0) % MCV 94.1 (80.0-100.0) fL MCH 30.8 (25.0-35.0) pg MCHC 32.7 (31.0-37.0) g/dL RDW 13.3 (11.5-15.5) % Plt Count 196 (150-450) k/uL MPV 6.9 Neutrophils % 79 % Lymphocytes % 13 % Monocytes % 6 % Eosinophils % 1 % Basophils % 0 % Neutrophils # 5.4 (1.3-7.7) k/uL Lymphocytes # 0.9 L (1.0-4.8) k/uL Monocytes # 0.4 (0-1.0) k/uL Eosinophils # 0.1 (0-0.7) k/uL Basophils # 0.0 (0-0.2) k/uL PT 10.4 (10.0-12.5) sec INR 0.9 (<1.2) APTT 24.9 (22.0-30.0) sec Sodium 138 (137-145) mmol/L Potassium 4.0 (3.5-5.1) mmol/L Chloride 103 (98-107) mmol/L Carbon Dioxide 29 (22-30) mmol/L Anion Gap 6 mmol/L BUN 19 H (7-17) mg/dL Creatinine 0.59 (0.52-1.04) mg/dL Est GFR (CKD-EPI)AfAm >90 (>60 ml/min/1.73 sqM) Est GFR (CKD-EPI)NonAf >90 (>60 ml/min/1.73 sqM) Glucose 65 L (74-99) mg/dL Plasma Lactic Acid Devin (0.7-2.0) mmol/L Calcium 9.5 (8.4-10.2) mg/dL Total Bilirubin 0.7 (0.2-1.3) mg/dL AST 31 (14-36) U/L ALT 18 (4-34) U/L Alkaline Phosphatase 61 (38-126) U/L Troponin I (0.000-0.034) ng/mL Total Protein 6.8 (6.3-8.2) g/dL Albumin 4.2 (3.5-5.0) g/dL TSH (0.465-4.680) mIU/L Free T4 (0.78-2.19) ng/dL 04/21/24 04/21/24 04/21/24 Range/Units 13:26 13:26 13:26 WBC (3.8-10.6) k/uL RBC (3.80-5.40) m/uL Hgb (11.4-16.0) gm/dL Hct (34.0-46.0) % MCV (80.0-100.0) fL MCH (25.0-35.0) pg MCHC (31.0-37.0) g/dL RDW (11.5-15.5) % Plt Count (150-450) k/uL MPV Neutrophils % % Lymphocytes % % Monocytes % % Eosinophils % % Basophils % % Neutrophils # (1.3-7.7) k/uL Lymphocytes # (1.0-4.8) k/uL Monocytes # (0-1.0) k/uL Eosinophils # (0-0.7) k/uL Basophils # (0-0.2) k/uL PT (10.0-12.5) sec INR (<1.2) APTT (22.0-30.0) sec Sodium (137-145) mmol/L Potassium (3.5-5.1) mmol/L Chloride (98-107) mmol/L Carbon Dioxide (22-30) mmol/L Anion Gap mmol/L BUN (7-17) mg/dL Creatinine (0.52-1.04) mg/dL Est GFR (CKD-EPI)AfAm (>60 ml/min/1.73 sqM) Est GFR (CKD-EPI)NonAf (>60 ml/min/1.73 sqM) Glucose (74-99) mg/dL Plasma Lactic Acid Devin 0.9 (0.7-2.0) mmol/L Calcium (8.4-10.2) mg/dL Total Bilirubin (0.2-1.3) mg/dL AST (14-36) U/L ALT (4-34) U/L Alkaline Phosphatase (38-126) U/L Troponin I <0.012 (0.000-0.034) ng/mL Total Protein (6.3-8.2) g/dL Albumin (3.5-5.0) g/dL TSH 7.690 H (0.465-4.680) mIU/L Free T4 1.19 (0.78-2.19) ng/dL - EKG Data -: EKG Interpreted by Me EKG Comments: EKG taken at 13: 16 showing a sinus rhythm. No ST segment elevations or depressions. No T wave abnormalities. Normal axis. Ventricular rate 74, OK interval 208, QRS duration 84, QT/QTc 382/409. - Radiology Data Radiology results: report reviewed, image reviewed Disposition Clinical Impression: Fall, Dizziness Disposition: HOME SELF-CARE Condition: Stable Additional Instructions: You may take [id number] ibuprofen and Tylenol for pain control. Follow-up with PCP in the next 1 to 2 days. Return to the ER for any new or worsening concerns. Prescriptions: Meclizine [Antivert] 25 mg PO BID PRN #15 tab PRN Reason: Vertigo Is patient prescribed a controlled substance at d/c from ED?: No Referrals: Allan Kaur MD [Primary Care Provider] - 1-2 days Time of Disposition: 16:19
[2024-04-21] MEDS: MECLIZINE 12.5 MG TAB PO STA (13:28)
[2024-04-21] MEDS: SODIUM CHLORIDE 0.9% 1,000 ML IV STA (13:29)
[2024-04-21 13:33] LABS: Basophils % (A) 0 %; Eosinophils # (A) 0.1 k/uL (0-0.7); Eosinophils % (A) 1 %; HCT 36.7 % (34.0-46.0); Lymphocytes # (A) 0.9 k/uL (1.0-4.8); Lymphocytes % (A) 13 %; MCH 30.8 pg (25.0-35.0); MCHC 32.7 g/dL (31.0-37.0); MCV 94.1 fL (80.0-100.0); Mean Platelet Volume 6.9; Monocytes # (A) 0.4 k/uL (0-1.0); Monocytes % (A) 6 %; Neutrophils # (A) 5.4 k/uL (1.3-7.7); Neutrophils % (A) 79 %; Platelet Count 196 k/uL (150-450); RDW 13.3 % (11.5-15.5); WBC 6.9 k/uL (3.8-10.6)
[2024-04-21 13:41] LABS: INR 0.9 (<1.2); Partial Thromboplastin Time 24.9 sec (22.0-30.0); Prothrombin Time 10.4 sec (10.0-12.5)
[2024-04-21 13:51] LABS: ALT 18 U/L (4-34); AST 31 U/L (14-36); African American GFR (CKD) >90 (>60 ml/min/1.73 sqM); Albumin 4.2 g/dL (3.5-5.0); Alkaline Phosphatase 61 U/L (38-126); Anion Gap 6 mmol/L; Blood Urea Nitrogen 19 mg/dL (7-17); Calcium 9.5 mg/dL (8.4-10.2); Carbon Dioxide 29 mmol/L (22-30); Chloride 103 mmol/L (98-107); Glucose 65 mg/dL (74-99); Non-African American GFR(CKD) >90 (>60 ml/min/1.73 sqM); Sodium 138 mmol/L (137-145); Total Bilirubin 0.7 mg/dL (0.2-1.3); Total Protein 6.8 g/dL (6.3-8.2)
--- NOTE | 2024-04-21 14:59 | CT ---
EXAMINATION TYPE: CT abdomen pelvis w con DATE OF EXAM: 04/21/2024 COMPARISON: 08/17/2022 HISTORY: RLQ abd pain after fall x5 days ago CT DLP: 565.7 mGycm Automated exposure control for dose reduction was used. TECHNIQUE: Helical acquisition of images was performed from the lung bases through the pelvis. CONTRAST: Performed without Oral Contrast and with IV Contrast, patient injected with 100ml mL of Isovue 370. FINDINGS: The visualized lung bases are clear. The gallbladder is normal. There is no focal mass or organomegaly involving liver, pancreas, spleen or adrenal glands. There is no solid renal mass or hydronephrosis. There are parapelvic cysts of both kidneys. Caliber of the abdominal aorta is normal and no retroperitoneal adenopathy or hemorrhage. The bowel loops are normal in caliber and there is no dilatation or obstruction. No inflammatory sawyer ges are identified in the bowel wall and mesentery. There is no free intraperitoneal air or fluid. No focal osseous lesions are seen. There is surgical absence of uterus. There is moderate diverticulosis of the sigmoid colon but no CT evidence of diverticulitis. IMPRESSION: No acute changes within the abdomen or pelvis. No significant abnormality seen. [facility], , 04/21/2024 2:57 PM
[2024-04-21 15:56] LABS: T4, Free (Free Thyroxine) 1.19 ng/dL (0.78-2.19)
[2024-04-21 16:40] VITALS: BP 128/79; PULSE 81; RESP 18
== END 2024-04-21 16:52 | disposition home or self-care (01) ==
LOC: EC 11:48
CPT/HCPCS: 36415; 70450; 72125; 74177; 80053; 83605; 84439; 84443; 84484; 85025; 85610; 85730; 93005; 96360; 96361

== ENCOUNTER → 2024-05-06 | Outpatient (CLI) | payer MEDICARE ==
--- NOTE | 2024-05-07 10:57 | MM ---
Reason for Exam: Screening (asymptomatic). Last mammogram was performed 1 year(s) and 1 month(s) ago. Patient History: Menarche at age 12. First Full-Term at age 29. Late child-bearing (after 29). Hysterectomy at age 47. Postmenopausal. Patient used Hormonal Contraceptives for 2 years. 04/25/2004, Benign Stereotactic Core Biopsy on the right side. Risk Values: Teresa 5 year model risk: 2.6%. NCI Lifetime model risk: 10.4%. Prior Study Comparison: 12/31/2020 Bilateral Screening Mammogram, [facility]. 02/07/2022 Bilateral MG 3D screening mammo w/cad, [facility]. 04/02/2023 Bilateral MG 3D screening mammo w/cad, [facility]. Tissue Density: The breasts are heterogeneously dense, which may obscure small masses. Findings: Analyzed By CAD. There is no suspicious group of microcalcifications or new suspicious mass in either breast. Overall Assessment: Benign, BI-RAD 2 Management: Screening Mammogram of both breasts in 1 year. . Patient should continue monthly self-breast exams. A clinical breast exam by your physician is recommended on an annual basis. This exam should not preclude additional follow-up of suspicious palpable abnormalities. Note on Teresa scores and lifetime risk: 1. A Teresa score greater than 3% is considered moderate risk. If this is the case, consider specialist referral to assess eligibility for a risk reducing agent. 2. If overall lifetime risk for the development of breast cancer is 20% or higher, the patient may qualify for future screening with alternating mammogram and breast MRI. [facility], , 05/07/2024 10:54 AM. Electronically signed and approved by: Ced Munoz M.D. Radiologis
== END | disposition home or self-care (01) ==
LOC: RADMAMWWP 15:11
PROVIDERS: ATTEND Family Medicine
CPT/HCPCS: 77063; 77067

== ENCOUNTER → 2024-05-14 | Outpatient (CLI) | payer MEDICARE ==
[2024-05-14 08:51] VITALS: BP 137/85; PULSE 70; RESP 16
--- NOTE | 2024-05-14 14:32 | P.PAINPG ---
PQRS Measure Charge Sheet Comment: HISTORY OF PRESENT ILLNESS: A 63 yr old female as a referral from Dr Kaur presents today w severe and chronic LBP > 18 mo secondary to radiculopathy, spondylosis and facet arthropathy without myelopathy for evaluation. Pt states pain level is provoked at 6 /10 in intensity, constant, localized in the lumbar spine, predominantly axial, sore in character w occasional shooting pain towards the LLE. Pain is provoked by weight bearing. Pain is alleviated by physician guided home exercises 4-5 times weekly since Feb 2023, heat, ice, medications (Steroid dosepack), repositioning and rest . PMH: OA, GERD, Hyperlipidemia, IBS, OP, Hypothyroidism, MDD/ Anxiety/ Panic Disorder PSH: L Knee Arthroscopy x2, R Knee Arthroscopy, R RCT Repair, D&C, Colonoscopy, Inc Hernia Repair SH: Never smoker, Occ ETOH use, No illicit drug use FH: Mo- No Reported History All: See list Meds: See list REVIEW OF ORGAN SYSTEMS: CONSTITUTIONAL: No fevers or chills. No recent weight loss. NEUROLOGICAL: + numbness and tingling along the distal extremities. No seizure disorders or headaches. MUSCULOSKELETAL: + pain PSYCHIATRIC: Denies current depression or suicidal thoughts. Physical Examinations : Constitutional : Cooperative , not in acute distress . Neurologic : Cranial nerve II to XII intact. No focal neurological deficits. Psychiatric : alert & oriented x 3. Matching mood & appropriate affect. Judgment & insight intact. Musculoskeletal : Cervical Spine Motor strength in the deltoid and biceps: Normal right side. Normal Left side Motor strength biceps and the wrist extensors: Normal right side . Normal left side Motor strength in the triceps muscle: Normal right side. Normal left side Deep tendon reflexes: Normal at the biceps. Normal at Brachioradialis. Normal at triceps Vertebral body tenderness to deep palpation over Cervical facet loading test: positive bilaterally Spurling test: positive bilaterally Neck distraction test: positive bilaterally Emanuel sign: positive bilaterally Lumbar spine Motor strength lower extremities ,thigh and legs 5/5 Right side , 5/5 Left side Deep tendon reflexes : Normal Knee Jerk. Normal Ankle Jerk Vertebral body tenderness over L4 Manrique Test positive L3-L4 BL Lumbar facet Loading Test: positive Right / positive Left Range of motion of the lumbar spine Flexion 30 degrees, extension 10 degrees Straight Leg Raise test: Left/ Right positive at degrees Itzel test: positive right / positive left. Severe tenderness over the Sacroiliac joint on the Right / Left sides Gaenslen test: positive bilaterally Seated flexion test: positive bilaterally. Sacral spine : Severe tenderness over the Sacroiliac joint: right side / left side Range of motion: Flexion of the lumbar spine <60 degrees Range of motion: Extension of the lumbar spine <20 degrees Gaenslen's Test positive Itzel test: positive right side / left side Thigh Thrust Test Sacral Thrust Test Imaging: MRI non contrast lumbar spine from 02/22/23 reviewed Assessment/ Plan : L3-L4/ L4-L5 facet hypertrophy Recommendation of SHREYAS L3-L4 #1. Jury duty excuse note provided. Short course Thousandsticks 7.5/325 mg #18 NR provided. Use, side effects, adverse reactions, safe storage discussed. Risks, benefits of procedure discussed and patient verbalized understanding. Admits to anti- coagulant use or medical history of diabetes. Protocol for discontinuation/ continuation of medications miguel procedure discussed. All questions answered. I have spent greater than 30 minutes on patient care today. Dr Mistry was available by phone for the evaluation of this patient. The time was used to review the medical records including relevant urine studies and Prescription history (MAPs), review of the available imaging, evaluation and examination of the patient, coordination of care with the medical staff and if applicable referring physicians, as well as creation of the medical record - Pain Location Left Buttock Non-Pharmacological Interventions: Chiropractic Treatment, Massage, Physical Therapy, Standing Pharmacological Interventions: Medication, PRN Medication, Scheduled Medication PQRS Narrative: Smoking Status Never smoker Home Medications: Ambulatory Orders Levothyroxine Sodium [Synthroid] 75 mcg PO DAILY 07/02/17 Atorvastatin [Lipitor] 40 mg PO DAILY 01/25/18 ALPRAZolam [Xanax] 1 mg PO TID PRN 12/15/21 Meclizine [Antivert] 25 mg PO BID PRN #15 tab 04/21/24 Omeprazole Magnesium [PriLOSEC OTC] 20 mg PO DAILY PRN 04/21/24 diphenhydrAMINE [Benadryl] 50 mg PO Q6H PRN 04/21/24 HYDROcodone/APAP 7.5-325MG [Thousandsticks 7.5-325] 1 tab PO Q4H PRN 3 Days #18 tab 05/14/24 Controlled Substance Measures - Controlled Substance Measures Is patient prescribed a controlled substance at discharge?: Yes When asked, does pt state using other controlled substances?: Yes If prescribed controlled substance>3 days was MAPS reviewed?: Prescribed <3 Days
== END ==
LOC: PNWHC3 08:25
PROVIDERS: ATTEND Specialist
CPT/HCPCS: 99211

== ENCOUNTER → 2024-05-29 | Day surgery (SDC) | payer MEDICARE ==
[2024-05-26 15:58] VITALS: BMI 21.9
[~2024-05-29] MED LIST changes: -DEXAMETHASONE SOD PHOSPHATE 4 MG/ML 1 ML VIAL IV ONE; -HYDROmorphone 0.5 MG/0.5 ML SYRINGE IVP PRN; -LIDOCAINE 1% (10MG/ML) FOR IV START INTRADERMA PRN; -MIDAZOLAM 2 MG/2 ML VIAL IV PRN; -ONDANSETRON 4 MG/2 ML VIAL IVP ONE
[2024-05-29 07:15] LABS: Glucose,Whole Blood 83 mg/dL (70-110)
[2024-05-29 07:17] VITALS: BP 129/67; PULSE 79; RESP 16; TEMP 97.3
--- NOTE | 2024-05-29 08:47 | P.PN ---
Progress Note - Text Progress Note Date: 05/29/24 Ms. Flower scheduled for lumbar L3-L4 epidural steroid injection under fluoroscopy guidance. As per the examinee she had no pain in the lumbar spine. Most of her pain is left gluteal area, and her tailbone area she has ongoing pain for the last 19 months. Rarely her pain radiates from gluteal to left side ankle area causing numbness and tingling. She describes her pain is constant aching, throbbing type in her left gluteal, and tailbone area. Prolonged sitting making her pain worse. Standing relieving her pain. She do regular stretching exercise, and workout at the [facility]. She had a history of multiple falls on her own gluteal area/tailbone. She tried a Medrol Dosepak which was helpful from her primary care physician On physical exam: No pain/tenderness over lumbar spine area Tenderness on her left gluteal muscle area positive. Left lower lumbar facet load test positive. Straight leg raising test negative: Itzel's test positive, SI joint tenderness positive on the left side. Pyriformis muscle stretch test positive, and tenderness over coccygeal bone also positive. 02/01/2023 lumbar x-ray showed 1. No acute fracture or dislocation is seen in the lumbar spine. 2. Mild multilevel degenerative disc disease and facet arthropathy. 3. Minimal grade 1 anterolisthesis of L3 on L4 and L4 on L5. 4. Dextro scoliotic curvature of the lumbar spine. MRI of the lumbar spine done on 02/22/2023 showed: Mild posterior lateral thecal sac compression from facet hypertrophy at L3-L4, and L4-L5 levels. No significant disc bulge, disc herniation or spinal canal stenosis at L5-S1, L4-L5, L3-L4, L2-L3, L1-L2, and T12-L1. 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 Plan: Discussed with the procedure patient regarding procedure, complications, alternatives. Patient clearly understood, and answered all the questions, and patient was given information regarding coccygodynia and pyriformis syndrome, sacroiliac joint dysfunction, and lumbar spondylosis information. Discussed regarding procedure, alternatives, including physical therapy, medications, stretching exercises. Procedure: Left pyriformis injection, and ganglion impar block along with sacrococcygeal joint injection. Procedure, alternatives discussed with the patient. In future she may benefit from left SI joint injection, and left side lumbar L3- L4, L4-L5 medial branch block if needed if the above-mentioned procedures are not helpful. Medication: She may benefit from gabapentin /Lyrica gradual escalation as tolerated, and magnesium oxide.
== END ==
LOC: ORPAIN 06:26
DX: Z53.8 Procedure and treatment not carried out for other reasons (principal); G57.02 Lesion of sciatic nerve, left lower limb; M53.3 Sacrococcygeal disorders, not elsewhere classified; M47.816 Spondylosis without myelopathy or radiculopathy, lumbar region

== ENCOUNTER 2024-06-05 08:18 | Day surgery (SDC) | payer MEDICARE ==
[2024-06-05 08:39] VITALS: TEMP 97.7
[2024-06-05] MEDS ORDERED: IOPAMIDOL M200 10 ML VIAL ONE (09:36)
[2024-06-05] MEDS ORDERED: methylPREDNISolone ACETATE 80 MG/ML 1 ML VIAL ONE (09:36)
[2024-06-05] MEDS ORDERED: ROPIVACAINE 5MG/ML 20ML VIAL ONE (09:36)
[2024-06-05 10:12] VITALS: RESP 16
--- NOTE | 2024-06-05 10:19 | FL ---
EXAMINATION TYPE: FL guided pain mgmt statistic DATE OF EXAM: 06/05/2024 COMPARISON: NONE HISTORY: Pain TECHNIQUE: Fluoroscopy. ganglion impar nerve injection. pain on her bottom side. fl time 9.6 secs [id number] [id number] [facility], , 06/05/2024 10:17 AM
[2024-06-05 10:26] VITALS: BP 137/79; PULSE 72
[2024-06-05] MEDS ORDERED: LACTATED RINGERS 1,000 ML IV SCH (12:45)
--- NOTE | 2024-06-05 13:32 | P.PCN ---
Date of Procedure: 06/05/24 Procedure(s) Performed: PREOP DIAGNOSIS= 1- Coccydynia 2- Left piriformis muscle syndrome. 3-lumbar spondylosis. 4-left side sacroiliac joint dysfunction POSTOP DIAGNOSIS=: Same as preop diagnosis PROCEDURE:1- Ganglion impar block under fluoroscopy guidance. (Fluoroscopy images available in radiology department ) 2-left piriformis muscle injection with ultrasound guidance ANESTHESIA: Local with 1% lidocaine 5 ml only for skin and subcu infiltration EBL:None. PROCEDURE INDICATION: The patient with chronic proctitis non responsive to more conservative measures. PROCEDURE DESCRIPTION: The patient was seen and identified in the preoperative area. Risks, benefits, complications, and alternatives were discussed with the patient. The patient agreed to proceed with the procedure and signed the consent. IV was started, and vital signs were stable. Patient was taken to the OR and time out was completed. The patient was placed in the prone position on procedure table and a pillow was placed under the abdomen to reduce lumbar lordosis.The lumbosacral area was prepped and draped in the usual sterile fashion. Critical pause was taken. Vital signs were closely monitored during the procedure. Using crosstable lateral view, the sacrococcygeal joint was identified and localized with 1% lidocaine. A 22 guage 3-1/2 inch needle was inserted lateral to the edge of the sacrococcygeal ligament ( left side )and advanced to the anterior aspect of the joint guided by cira-posterior and lateral fluoroscopy. Correct needle position was verified by injecting 2 ml of water soluble dye, Omnipaque 200, and observing a spread along the anterior side of the sacro- coccygeal ligament. After negative aspiration of CSF, blood, and no paresthesias, 5 mL of block solution containing 4mL of 0.5%preservative-free Ropivacaine and Depo-Medrol 40 mg was injected. Needle was withdrawn intact. After that the left piriformis muscle injection done under ultrasound guidance 20-gauge pulled junk needle advanced slowly under ultrasound placed in the left piriformis muscle then after negative aspiration for heme and there was no paresthesia noted of 6 mL of ropivacaine 0.5% with 40 mg of Depo-Medrol injected in the left piriformis muscle after negative aspiration patient tolerated the pr ocedure well without any complication, the end of the procedure the skin was cleaned and Band-Aid applied and patient will follow-up in the pain clinic in few weeks COMPLICATIONS: None DISPOSITION / PLANS: The patient was placed in a supine position and transferred to the recovery area in a stable condition for observation. Patient was discharged from the recovery room after meeting discharge criteria. Discharge instructions given to the patient by the staff. The patient was reexamined prior to discharge. The patient will schedule a follow up in the clinic in 2-4 weeks.
== END 2024-06-05 10:38 | disposition home or self-care (01) ==
LOC: ORPAIN 08:18
PROVIDERS: ATTEND Specialist
DX: M53.3 Sacrococcygeal disorders, not elsewhere classified (principal); G57.02 Lesion of sciatic nerve, left lower limb; M47.816 Spondylosis without myelopathy or radiculopathy, lumbar region; K62.89 Other specified diseases of anus and rectum
CPT/HCPCS: 20552; 64999; Q9966; J2795; J1010; 20553

== ENCOUNTER → 2024-07-02 | Outpatient (CLI) | payer MEDICARE ==
[2024-07-02 14:05] VITALS: BP 115/84; PULSE 89; RESP 20; TEMP 97.4
--- NOTE | 2024-07-02 15:24 | P.PAINPG ---
PQRS Measure Charge Sheet Comment: HISTORY OF PRESENT ILLNESS: A 64 yr old female presents today w severe and chronic LBP > 18 mo secondary to radiculopathy, spondylosis and facet arthropathy without myelopathy for evaluation s/p L Piriformis L Ganglion impar block #1. Pt states she experienced 80 % pain relief x 2 wks s/p procedure. Pt states pain level is provoked at 6 /10 in intensity, constant, localized in the lumbar spine, predominantly axial, sore in character w occasional shooting pain towards the LLE. Pain is provoked by sitting for periods > 15 min. Pain is alleviated by physician guided home exercises 4-5 times weekly since Feb 2023, heat, ice, medications, repositioning and rest. Interventional procedures include L Piriformis L Ganglion Impar Block x1 Medications include steroid dosepack REVIEW OF ORGAN SYSTEMS: CONSTITUTIONAL: No fevers or chills. No recent weight loss. NEUROLOGICAL: + numbness and tingling along the distal extremities. No seizure disorders or headaches. MUSCULOSKELETAL: + pain PSYCHIATRIC: Denies current depression or suicidal thoughts. Physical Examinations : Constitutional : Cooperative , not in acute distress . Neurologic : Cranial nerve II to XII intact. No focal neurological deficits. Psychiatric : alert & oriented x 3. Matching mood & appropriate affect. Judgment & insight intact. Musculoskeletal : Cervical Spine Motor strength in the deltoid and biceps: Normal right side. Normal Left side Motor strength biceps and the wrist extensors: Normal right side . Normal left side Motor strength in the triceps muscle: Normal right side. Normal left side Deep tendon reflexes: Normal at the biceps. Normal at Brachioradialis. Normal at triceps Vertebral body tenderness to deep palpation over Cervical facet loading test: positive bilaterally Spurling test: positive bilaterally Neck distraction test: positive bilaterally Emanuel sign: positive bilaterally Lumbar spine Motor strength lower extremities ,thigh and legs 5/5 Right side , 5/5 Left side Deep tendon reflexes : Normal Knee Jerk. Normal Ankle Jerk Vertebral body tenderness over L4 Manrique Test positive L3-L4 BL Lumbar facet Loading Test: positive Right / positive Left Range of motion of the lumbar spine Flexion 30 degrees, extension 10 degrees Straight Leg Raise test: Left/ Right positive at degrees Itzel test: positive right / positive left. Severe tenderness over the Sacroiliac joint on the Right / Left sides Gaenslen test: positive bilaterally Seated flexion test: positive bilaterally. Sacral spine : Severe tenderness over the Sacroiliac joint: right side / left side Range of motion: Flexion of the lumbar spine <60 degrees Range of motion: Extension of the lumba r spine <20 degrees Gaenslen's Test positive Itzel test: positive right side / left side Thigh Thrust Test Sacral Thrust Test Imaging: MRI non contrast lumbar spine from 02/22/23 reviewed Assessment/ Plan : L3-L4/ L4-L5 facet hypertrophy Recommendation of L Piriformis L Ganglion Impar Block #1. Risks, benefits of procedure discussed and patient verbalized understanding. Protocol for discontinuation/ continuation of medications miguel procedure discussed. All questions answered. I have spent greater than 30 minutes on patient care today. Dr Mistry was available by phone for the evaluation of this patient. The time was used to review the medical records including relevant urine studies and Prescription history (MAPs), review of the available imaging, evaluation and examination of the patient, coordination of care with the medical staff and if applicable referring physicians, as well as creation of the medical record - Pain Location Lower Back Non-Pharmacological Interventions: Relaxation Technique Pharmacological Interventions: Epidural PQRS Narrative: Smoking Status Never smoker Hx Alcohol Use (MH) No Home Medications: Ambulatory Orders Levothyroxine Sodium [Synthroid] 75 mcg PO DAILY 07/02/17 Atorvastatin [Lipitor] 40 mg PO DAILY 01/25/18 ALPRAZolam [Xanax] 1 mg PO TID PRN 12/15/21 Omeprazole Magnesium [PriLOSEC OTC] 20 mg PO DAILY PRN 04/21/24 diphenhydrAMINE [Benadryl] 50 mg PO Q6H PRN 04/21/24 HYDROcodone/APAP 7.5-325MG [[place] 7.5-325] 1 tab PO Q4H PRN 3 Days #18 tab 05/14/24 Controlled Substance Measures - Controlled Substance Measures Is patient prescribed a controlled substance at discharge?: No
== END ==
LOC: PNWHC3 13:20
PROVIDERS: ATTEND Specialist
DX: M47.816 Spondylosis without myelopathy or radiculopathy, lumbar region (principal)
CPT/HCPCS: 99211

== ENCOUNTER 2024-08-01 07:58 | Day surgery (SDC) | payer MEDICARE ==
[2024-08-01 08:23] VITALS: TEMP 97.6
[2024-08-01] MEDS ORDERED: IOPAMIDOL M200 10 ML VIAL ONE (09:05)
[2024-08-01] MEDS ORDERED: methylPREDNISolone ACETATE 80 MG/ML 1 ML VIAL ONE (09:05)
[2024-08-01] MEDS ORDERED: ROPIVACAINE 5MG/ML 20ML VIAL ONE (09:05)
--- NOTE | 2024-08-01 09:27 | P.PCN ---
Date of Procedure: 08/01/24 Procedure(s) Performed: PREOP DIAGNOSIS= 1- Coccydynia 2- Left piriformis muscle syndrome. 3-lumbar spondylosis. 4-left side sacroiliac joint dysfunction POSTOP DIAGNOSIS=: Same as preop diagnosis PROCEDURE:1- Ganglion impar block under fluoroscopy guidance. (Fluoroscopy images available in radiology department ) 2-left piriformis muscle injection with ultrasound guidance ANESTHESIA: Local with 1% lidocaine 3 ml only for skin and subcu infiltration EBL:None. PROCEDURE INDICATION: The patient with chronic proctitis non responsive to more conservative measures. PROCEDURE DESCRIPTION: The patient was seen and identified in the preoperative area. Risks, benefits, complications, and alternatives were discussed with the patient. The patient agreed to proceed with the procedure and signed the consent. IV was started, and vital signs were stable. Patient was taken to the OR and time out was completed. The patient was placed in the prone position on procedure table and a pillow was placed under the abdomen to reduce lumbar lordosis.The lumbosacral area was prepped and draped in the usual sterile fashion. Critical pause was taken. Vital signs were closely monitored during the procedure. Using crosstable lateral view, the sacrococcygeal joint was identified and localized with 1% lidocaine. A 22 guage 3-1/2 inch needle was inserted lateral to the edge of the sacrococcygeal ligament ( left side )and advanced to the anterior aspect of the joint guided by cira-posterior and lateral fluoroscopy. Correct needle position was verified by injecting 2 ml of water soluble dye, Omnipaque 200, and observing a spread along the anterior side of the sacro- coccygeal ligament. After negative aspiration of CSF, blood, and no paresthesias, 5 mL of block solution containing 4 mL of 0.5%preservative-free Ropivacaine and Depo-Medrol 40 mg was injected. Needle was withdrawn intact. After that the left piriformis muscle injection done under ultrasound guidance 20-gauge pujunk needle advanced slowly under ultrasound placed in the left piriformis muscle then after negative aspiration for heme and there was no paresthesia noted of 6 mL of ropivacaine 0.5% with 40 mg of Depo-Medrol injected in the left piriformis muscle after negative aspiration patient tolerated the procedure well without any complication, the end of the procedure the skin was cleaned and Band-Aid applied and patient will follow-up in the pain clinic in few weeks COMPLICATIONS: None DISPOSITION / PLANS: The patient was placed in a supine position and transferred to the recovery area in a stable condition for observation. Patient was discharged from the recovery room after meeting discharge criteria. Discharge instructions given to the patient by the staff. The patient was reexamined prior to discharge. The patient will schedule a follow up in the clinic in 2-4 weeks.
--- NOTE | 2024-08-01 09:40 | FL ---
EXAMINATION TYPE: FL guided pain mgmt statistic DATE OF EXAM: 08/01/2024 9:21 AM COMPARISON: Pre Operative Images if available both CT/MRI or plain film CLINICAL INDICATION: Female, 64 years old with history of RF JAY GANG; TECHNIQUE: FL guided pain mgmt statistic, multiple fluoroscopic images provided for procedure. Total fluoroscopy time: 4.5 seconds Total submitted images to PACS: 1 DAP: [id number] mGym2 Gycm2 uGym2 cGycm2 or equivalent. FINDINGS: Fluoroscopic images during injection for pain management. No evidence for fracture. No acute process identified. IMPRESSION: 1. No evidence for intraoperative complication. 2. Please see the operative/procedural note for further details. [facility], , 08/01/2024 9:37 AM
[2024-08-01 09:49] VITALS: BP 140/76; PULSE 66; RESP 16
== END 2024-08-01 10:12 | disposition home or self-care (01) ==
LOC: ORPAIN 07:58
PROVIDERS: ATTEND Specialist
DX: M53.3 Sacrococcygeal disorders, not elsewhere classified (principal); G57.02 Lesion of sciatic nerve, left lower limb; M47.816 Spondylosis without myelopathy or radiculopathy, lumbar region; K62.89 Other specified diseases of anus and rectum
CPT/HCPCS: 20553; 64999; Q9966; J2795; J1010

== ENCOUNTER → 2025-01-22 | Outpatient (CLI) | payer MEDICARE ==
--- NOTE | 2025-01-22 15:30 | XR ---
EXAMINATION TYPE: XR foot complete RT, XR ankle complete RT DATE OF EXAM: 01/22/2025 3:12 PM COMPARISON: None CLINICAL INDICATION: Female, 64 years old with history of R22.41 OCALIZED SWELLING, MASS AND LUMP, RI GHT LOW; PHH, pain TECHNIQUE: XR foot complete RT, XR ankle complete RT examined in the AP, oblique, and lateral project ions. FINDINGS: Question a lucency through the navicular bone on one view. Soft tissues are normal in the ankle. Mult ifocal degeneration changes of the joints of the foot and ankle withe a space narrowing osteophyte fo rmation. IMPRESSION: 1. Mild soft tissue swelling around the ankle with questionable lucency through the navicular bone f urther evaluation with CT recommended. 2. Multifocal degeneration changes throughout the joints of the foot. [facility], , 01/22/2025 3:27 PM
== END | disposition home or self-care (01) ==
LOC: RADXRMAIN 14:39
PROVIDERS: ATTEND Family Medicine
DX: M19.071 Primary osteoarthritis, right ankle and foot (principal)

== ENCOUNTER → 2025-02-04 | Outpatient (CLI) | payer MEDICARE ==
--- NOTE | 2025-02-07 02:11 | CT ---
EXAMINATION TYPE: CT ankle RT wo con DATE OF EXAM: 02/04/2025 11:41 AM COMPARISON: None. CLINICAL INDICATION: Female, 64 years old with history of S92.254A NONDISP FX OF NAVICULAR OF RIGHT F OOT, nondisp fx of navicular or right foot TECHNIQUE: Contrast used: mL of , (none if empty) Oral contrast used: (none if empty) Axial images at 5 mm thick sections. Reconstructed images in the coronal and sagittal planes. FINDINGS: Ankle mortise is intact. Distal tibia and fibula appear intact. Talus appears normal. Attention is paid to the navicular. No acute displaced fracture identified. No nondisplaced fractures identified. Three-D reconstructed images are reviewed on the computer. Joint spaces appear preserved. Soft tissues appear normal IMPRESSION: 1. NO ACUTE OR SUBACUTE OSSEOUS ABNORMALITY. 2. NO SUSPICIOUS CHANGES TO SUGGEST HEALING FRACTURE OF THE NAVICULAR. [facility], Workstation: [facility], 02/07/2025 2:08 AM
== END | disposition home or self-care (01) ==
LOC: RADCTMAIN 10:54
PROVIDERS: ATTEND Podiatrist
DX: S92.254A Nondisplaced fracture of navicular [scaphoid] of right foot, initial encounter for closed fracture (principal); X58.XXXA Exposure to other specified factors, initial encounter